=== PATIENT | male | born 1970 | race Caucasian/White ===

== ENCOUNTER → 2017-07-25 | Outpatient (CLI) | payer BC ==
[2017-07-25 08:12] LABS: Blood Urea Nitrogen 16 mg/dL (9-20)
--- NOTE | 2017-07-25 10:54 | CT ---
EXAMINATION TYPE: CT abdomen w con DATE OF EXAM: 07/25/2017 COMPARISON: NONE HISTORY: 47-year-old male complain of periumbilical pain, umbilical hernia, and hiatal hernia. TECHNIQUE: Contiguous axial scanning of the abdomen following administration of 100 ml Omnipaque 300 IV contrast. Delayed images through the kidneys and coronal/sagittal reconstructions performed. CT DLP: 1430 mGycm Automated exposure control for dose reduction was used. FINDINGS: Heart is normal size without pericardial effusion. No sizable hiatal hernia seen. This does not exclu de the possibility of a sliding hiatal hernia. Lung bases clear without pleural effusion. Liver enlarged measuring 21.6 cm craniocaudal. There is suggestion of some fatty sparing along the ga llbladder fossa on the delayed kidney images is slightly decreased attenuation of the liver parenchym a. Portal venous system is patent. No biliary ductal dilatation. Gallbladder, adrenal glands, left kidney, spleen with superior splenules, and pancreas appear within normal limits. There are 2 hypodense lesions in the right kidney, the one at the lower pole measures 1.5 cm and is c ompatible with a cyst. The one at the upper pole measures 1.3 cm and is too small for accurate CT characterization but suspe cted to represent a complicated cyst. Pre and postcontrast attenuation is around 35 Hounsfield units. No dilated small bowel, free fluid, or free air. Partially visualized appendix appears normal. Some prominent right lower quadrant mesenteric lymph no rafita measuring up to 8 mm. Otherwise, no mesenteric or retroperitoneal lymphadenopathy. Mild stool burden and some diverticulosis at the junction of the descending and sigmoid colon. Small right periumbilical omental fat-containing abdominal wall hernia measuring 1.7 cm wide by 2.4 c m craniocaudal. This is a very narrow neck which is not well seen. The pelvis is not imaged. Bones: Degenerative disc disease L5-S1 and endplate spondylosis throughout the lower thoracic spine. IMPRESSION: 1. HEPATOMEGALY (21.6 CM). UNDERLYING HEPATIC STEATOSIS. CORRELATE WITH LFT's, LIPID PROFILE, AND PAT IENT RISK FACTORS. 2. A 1.3 CM LESION UPPER POLE RIGHT KIDNEY IS SUSPECTED TO REPRESENT A HEMORRHAGIC OR PROTEINACEOUS C YST BUT IS TOO SMALL FOR ACCURATE CT CHARACTERIZATION. RECOMMEND 6 MONTH FOLLOW-UP RENAL ULTRASOUND T O EXCLUDE ANY ENLARGING LESIONS. PARTICULAR ATTENTION TO THE UPPER POLE AT THAT TIME. THE LOWER POLE LESION IS COMPATIBLE WITH A CYST. 3. SMALL 1.7 X 2.4 CM RIGHT PERIUMBILICAL HERNIA WITH A VERY NARROW NECK. 4. MILD DIVERTICULOSIS LEFT SIDE OF THE COLON.
--- NOTE | 2017-07-25 13:58 | US ---
EXAMINATION TYPE: US abdomen limited DATE OF EXAM: 07/25/2017 COMPARISON: Same day CT study performed shortly after ultrasound was completed CLINICAL HISTORY: R10.11 RUQ pain. Nausea and bowel movement after eating greasy foods EXAM MEASUREMENTS: Liver Length: 18.5 cm Gallbladder Wall: 0.2 cm CBD: 0.3 cm Right Kidney: 13.0 x 5.8 x 6.5 cm Pancreas: Obscured by bowel gas Liver: enlarged, attenuating, heterogeneous Gallbladder: no evidence of stones Evidence for sonographic Campos's sign: No CBD: limited evaluation Right Kidney: enlarged with cystic area lower pole = 1.4 x 1.3 x 1.5cm Pancreas is obscured by overlying bowel gas on images saved but appeared predominantly within normal limits on subsequent CT. Tail portion is slightly more masslike as noted on addendum. Marked heteroge neous hyperechoic appearance of liver is consistent with diffuse fatty infiltration as confirmed on C T. No intrahepatic ductal dilatation is seen. No suspicious masses are identified on images saved. Th ere are no shadowing gallstones or ultrasound evidence for acute cholecystitis. A simple appearing 1. 4 cm cyst lower pole level right kidney is noted believed to correspond to coronal image [address] Lateral upper pole hypodense lesion likely reflecting simple cyst slightly smaller on CT is not clearly identified on ultrasound. IMPRESSION: 1. No gallstones or ultrasound evidence for acute cholecystitis. Marked fatty infiltrati on of liver is noted. Possible pancreatic tail lesion on CT, advise MRI/MRCP follow-up.
--- NOTE | 2017-07-25 19:58 | P.PN ---
Progress Note - Text Progress Note Date: 07/25/[address] scan results and findings. Patient is being referred to oncology for further work-up.
== END ==
LOC: RADUSMAIN 07:19
PROVIDERS: ATTEND Surgery Plastic and Reconstructive Surgery
DX: K80.10 Calculus of gallbladder with chronic cholecystitis without obstruction (principal); K76.0 Fatty (change of) liver, not elsewhere classified
CPT/HCPCS: 82565; 84520; 76705; 74160; 36415; Q9967

== ENCOUNTER → 2017-07-30 | Outpatient (CLI) | payer BC ==
--- NOTE | 2017-07-30 12:04 | MR ---
EXAMINATION TYPE: MR MRCP DATE OF EXAM: 07/30/2017 COMPARISON: Limited abdominal ultrasound and CT abdomen from 5 days ago. HISTORY: Pancreatic mass. Abnormal CT and ultrasound. Standard multiplanar, multisequence MRI departmental protocol Multiplanar, multisequence images of the abdomen focusing on pancreas were acquired. Thin and thick s lice MRCP images are created on MRI scanner and reviewed. FINDINGS: PANCREAS: Corresponding to CT majority of pancreas is normal in size with lobulation. Pancreatic duct is well-visualized in majority of pancreatic head and body and appears regular without suspicious di latation. Correlating with CT there is more oval fullness in the pancreatic tail with loss of lobulat ion . Area of concern remains isointense to remainder of pancreas on T1 and T2-weighted images. For r eference coronal image 24 series 201-- 1.6 x 1.0 cm lesion. Areas a little more conspicuous on curren t exam as on T2 fat-saturated sequence there appears to be some ductal visualization at level of lesi on image 29 series 401. Evaluation noted suboptimal as postcontrast imaging was not performed. OTHER: Lung bases remain clear. Corresponding to CT there is nonspecific 1.1 cm heterogeneous slightly T2 hyperintense lesion lateral ly upper pole level right kidney favoring simple cyst that needs to be followed. A 1.5 cm lesion lowe r pole level is not clearly identified on MRI suggesting possible proteinaceous cyst. Continued follo w-up also advised for this lesion. Several small splenules are redemonstrated. Gallbladder and both adrenal glands are felt within kylee l limits. Liver shows diffuse signal dropout consistent with mild fatty replacement. No suspicious enlargement is present. Punctate T2 hyperintense lesion right hepatic lobe axial image 39 series 501 favors simpl e cyst too small to visualize on CT. No ductal dilatation is seen. No bowel dilatation is present. No abdominal ascites is seen. Visualized osseous structures are intac t. No abdominal adenopathy is present. IMPRESSION: Persistent slightly suspicious bulbous appearance of pancreatic tail, this is less prominent than CT, neoplasm felt less likely but not excluded. Advise tumor marker correlation. Advise pancreatic cesar col contrast-enhanced MRI in 3-6 months time to reassess if tumor markers are negative.
== END | disposition home or self-care (01) ==
LOC: RADMRIMAIN 10:35
PROVIDERS: ATTEND Internal Medicine Hematology & Oncology
DX: K86.89 Other specified diseases of pancreas (principal)
CPT/HCPCS: 74181

== ENCOUNTER → 2017-08-21 | Day surgery (SDC) | payer BC ==
[2017-08-20 11:39] VITALS: BMI 34.8
[~2017-08-21] MED LIST: LACTATED RINGERS 1,000 ML IV SCH; LIDOCAINE 1% 20 ML VIAL (10MG/ML) FOR IV START INTRADERMA PRN; LIDOCAINE 1% INJ 10MG/ML (20 ML MDV) ONE; MIDAZOLAM 2 MG/2 ML VIAL IV PRN; PROPOFOL 10 MG/ML 20 ML VIAL IV ONE
--- NOTE | 2017-08-21 07:50 | P.GSHP ---
History of Present Illness H&P Date: 08/21/17 CHIEF COMPLAINT: GERD HISTORY OF PRESENT ILLNESS: The patient is a 47-year-old male who presents reports gastroesophageal reflux disease. Upper endoscopy was offered for further evaluation and management. PAST MEDICAL HISTORY: Please see list. PAST SURGICAL HISTORY: Please see list. MEDICATIONS: Please see list. ALLERGIES: Please see list. SOCIAL HISTORY: No illicit drug use FAMILY HISTORY: No reports of Crohn disease or ulcerative colitis. REVIEW OF ORGAN SYSTEMS: CONSTITUTIONAL: No reports of fevers or chills. GI: Denies any blood in stools or constipation. PHYSICAL EXAM: VITAL SIGNS: Stable GENERAL: Well-developed and pleasant in no acute distress. HEENT: No scleral icterus. Extraocular movements grossly intact. Moist buccal mucosa. NECK: Supple without lymphadenopathy. CHEST: Unlabored respirations. Equal bilateral excursions. CARDIOVASCULAR: Regular rate and rhythm. Distal 2+ pulses. ABDOMEN: Soft, nondistended. MUSCULOSKELETAL: No clubbing, cyanosis, or edema. ASSESSMENT: 1. Gastroesophageal reflux disease PLAN: 1. Recommend proceeding with an upper endoscopy Past Medical History Past Medical History: Diabetes Mellitus, GERD/Reflux, Hyperlipidemia, Hypertension, Prostate Disorder, Sleep Apnea/CPAP/BIPAP Additional Past Medical History / Comment(s): hiatal hernia, tumor on pancreas ( to have biopsy), History of Any Multi-Drug Resistant Organisms: None Reported Past Surgical History: Hernia Repair Additional Past Surgical History / Comment(s): umbilical and inguinal hernia repair, surgery to remove glass from left elbow Past Anesthesia/Blood Transfusion Reactions: Motion Sickness Smoking Status: Former smoker - Past Family History Mother Family Medical History: No Reported History Medications and Allergies Home Medications Medication Instructions Recorded Confirmed Type Atorvastatin [Lipitor] 80 mg PO DAILY 08/16/17 08/20/17 History Liraglutide [Victoza 2-Trung] 1.8 mg SQ DAILY 08/16/17 08/20/17 History Losartan/Hydrochlorothiazide 1 each PO QAM 08/16/17 08/20/17 History [Losartan-Hctz 100-25 mg Tab] ALPRAZolam [Xanax] 0.5 mg PO BID PRN 08/20/17 08/20/17 History Tamsulosin [Flomax] 0.4 mg PO DAILY PRN 08/20/17 08/20/17 History Thrive 1 patch TOPICAL DAILY 08/20/17 08/20/17 History metFORMIN HCL 1,000 mg PO BID 08/20/17 08/20/17 History Allergies Allergy/AdvReac Type Severity Reaction Status Date / Time bee venom protein (honey bee) Allergy Swelling Verified 08/20/17 11:30
[2017-08-21 12:09] VITALS: RESP 16; TEMP 97.5
--- NOTE | 2017-08-21 12:45 | P.PCN ---
Date of Procedure: 08/21/17 Description of Procedure: PREOPERATIVE DIAGNOSIS: Gastroesophageal reflux disease. Morbid obesity. POSTOPERATIVE DIAGNOSIS: Morbid obesity. Gastritis. Gastroesophageal reflux disease. Diaphragmatic hiatal hernia without obstruction. OPERATION: Esophagogastroduodenoscopy with biopsies along antrum. SURGEON: Marisa Roberts MD ANESTHESIA: MAC. INDICATIONS: The patient is a 47-year-old male who presents with a history of reflux disease. Benefits and risks of the procedure were described. Informed consent was obtained. DESCRIPTION: The patient was brought into the endoscopy suite and laid in the left lateral decubitus position. An Olympus gastroscope was passed along the posterior oropharynx down to the distal esophagus where the squamocolumnar junction was encountered at 40 cm from the incisors. The stomach was entered and no bile reflux was found. Additional findings are listed below. Biopsies with cold forceps were obtained of the antrum. The first through third portion of the duodenum was examined and unremarkable. Retroflexion of the scope confirmed Hill grade 4 lower esophageal valve. The squamocolumnar junction demostrated LA grade A erosive esophagitis. The stomach was desufflated. The patient tolerated the procedure well. FINDINGS: Squamocolumnar junction 40 cm from the incisors. Diaphragmatic hiatus at 41 cm. Hiatal hernia 1 cm. Hill grade 4 lower esophageal valve. LA grade A erosive esophagitis. No active duodenitis. Gastritis, chronic RECOMMENDATIONS: Upper endoscopy as needed. Plan - Discharge Summary New Discharge Prescriptions: No Action Losartan/Hydrochlorothiazide [Losartan-Hctz 100-25 mg Tab] 1 each PO QAM Liraglutide [Victoza 2-Trung] 1.8 mg SQ DAILY Atorvastatin [Lipitor] 80 mg PO DAILY metFORMIN HCL 1,000 mg PO BID Tamsulosin [Flomax] 0.4 mg PO DAILY PRN PRN Reason: prostate disorder ALPRAZolam [Xanax] 0.5 mg PO BID PRN PRN Reason: Anxiety Thrive 1 patch TOPICAL DAILY Discharge Medication List Atorvastatin [Lipitor] 80 mg PO DAILY 08/16/17 [History] Liraglutide [Victoza 2-Trung] 1.8 mg SQ DAILY 08/16/17 [History] Losartan/Hydrochlorothiazide [Losartan-Hctz 100-25 mg Tab] 1 each PO QAM [History] ALPRAZolam [Xanax] 0.5 mg PO BID PRN 08/20/17 [History] Tamsulosin [Flomax] 0.4 mg PO DAILY PRN 08/20/17 [History] Thrive 1 patch TOPICAL DAILY 08/20/17 [History] metFORMIN HCL 1,000 mg PO BID 08/20/17 [History]
[2017-08-21 12:52] VITALS: BP 105/71; PULSE 72
== END | disposition home or self-care (01) ==
LOC: ORWHC2ENDO 10:39
PROVIDERS: ATTEND Surgery Plastic and Reconstructive Surgery
DX: K29.50 Unspecified chronic gastritis without bleeding (principal); K21.9 Gastro-esophageal reflux disease without esophagitis; K44.9 Diaphragmatic hernia without obstruction or gangrene; F41.9 Anxiety disorder, unspecified; E11.9 Type 2 diabetes mellitus without complications; E78.5 Hyperlipidemia, unspecified; E66.01 Morbid (severe) obesity due to excess calories; I10 Essential (primary) hypertension; Z87.891 Personal history of nicotine dependence; Z79.899 Other long term (current) drug therapy; Z79.84 Long term (current) use of oral hypoglycemic drugs; Z91.030 Bee allergy status; Z68.34 Body mass index [BMI] 34.0-34.9, adult
CPT/HCPCS: 88305; 43239; J2001; J2704

== ENCOUNTER 2017-09-20 08:55 | Day surgery (SDC) | payer BC ==
[2017-09-10 10:28] VITALS: BMI 34.8
--- NOTE | 2017-09-20 07:15 | P.GSHP ---
History of Present Illness H&P Date: 09/20/17 CHIEF COMPLAINT: Ventral hernia HISTORY OF PRESENT ILLNESS: The patient is a 47-year-old male who presents with a history of swelling and pain along the abdomen from a hernia. Now he presents for surgical intervention. PAST MEDICAL HISTORY: Please see list. PAST SURGICAL HISTORY: Please see list. MEDICATIONS: Please see list. ALLERGIES: Please see list. SOCIAL HISTORY: No illicit drug use FAMILY HISTORY: No reports of Crohn disease or ulcerative colitis. REVIEW OF ORGAN SYSTEMS: CONSTITUTIONAL: No reports of fevers or chills. GI: Denies any blood in stools or constipation. PHYSICAL EXAM: VITAL SIGNS: Stable GENERAL: Well-developed pleasant male in no acute distress. HEENT: No scleral icterus. Extraocular movements grossly intact. Moist buccal mucosa. NECK: Supple without lymphadenopathy. CHEST: Unlabored respirations. Equal bilateral excursions. CARDIOVASCULAR: Regular rate and rhythm. Distal 2+ pulses. ABDOMEN: Soft, nondistended. Palpable defect of the abdomen. No peritoneal signs. MUSCULOSKELETAL: No clubbing, cyanosis, or edema. ASSESSMENT: 1. Ventral hernia, recurrent PLAN: 1. Recommend proceeding with a robotic ventral hernia repair with mesh. 2. Benefits and risks of surgical intervention was discussed including possibility of open technique. 3. DVT prophylaxis. 4. Antibiotic prophylaxis. Past Medical History Past Medical History: Diabetes Mellitus, GI Bleed, Hyperlipidemia, Hypertension Additional Past Medical History / Comment(s): hiatal hernia, tumor on pancreas ( to have biopsy), History of Any Multi-Drug Resistant Organisms: None Reported Past Surgical History: Hernia Repair, Orthopedic Surgery Additional Past Surgical History / Comment(s): Umb. and Inguinal hernia repairs , EGD, EUD at [facility]; Elbow surgery Past Anesthesia/Blood Transfusion Reactions: No Reported Reaction Past Psychological History: Anxiety Smoking Status: Former smoker Past Alcohol Use History: Rare Additional Past Alcohol Use History / Comment(s): quit smoking 1 year ago; prev. smoked 1/2 ppd for about 5 years Past Drug Use History: None Reported - Past Family History Mother Family Medical History: No Reported History Medications and Allergies Home Medications Medication Instructions Recorded Confirmed Type Atorvastatin [Lipitor] 80 mg PO DAILY 08/16/17 09/10/17 History Liraglutide [Victoza 2-Trung] 1.8 mg SQ DAILY 05/04/18 05/29/18 History Losartan/Hydrochlorothiazide 1 each PO QAM 08/16/17 09/10/17 History [Losartan-Hctz 100-25 mg Tab] ALPRAZolam [Xanax] 0.5 mg PO BID PRN 08/20/17 09/10/17 History Thrive 1 patch TOPICAL DAILY 08/20/17 09/10/17 History metFORMIN HCL 1,000 mg PO BID 08/20/17 09/10/17 History Omeprazole 40 mg PO DAILY #30 capsule. 08/21/17 09/10/17 Rx Allergies Allergy/AdvReac Type Severity Reaction Status Date / Time bee venom protein (honey bee) Allergy Swelling Verified 09/10/17 10:18
[~2017-09-20 08:55] MED LIST changes: +ACETAMINOPHEN IV (For NPO) 1,000 MG in EMPTY BAG 1 BAG IVPB ONE; +HEPARIN SODIUM,PORCINE 5,000 UNIT/ML 1 ML VIAL SQ ONE; +IBUPROFEN IV 400 MG in SODIUM CHLORIDE 0.9% 250 ML IV ONE; -LIDOCAINE 1% 20 ML VIAL (10MG/ML) FOR IV START INTRADERMA PRN; -LIDOCAINE 1% INJ 10MG/ML (20 ML MDV) ONE; -MIDAZOLAM 2 MG/2 ML VIAL IV PRN; +MORPHINE SULFATE 2 MG/ML SYRINGE IV PRN; +ONDANSETRON 4 MG/2 ML VIAL IVP PRN; +PROMETHAZINE INJ 6.25 MG in SODIUM CHLORIDE 0.9% 50 ML IVPB PRN; -PROPOFOL 10 MG/ML 20 ML VIAL IV ONE; +ceFAZolin IN SWFI 2 GM/20 ML SYRINGE IVP ONE
[2017-09-20 09:23] VITALS: TEMP 97.6
[2017-09-20 09:34] LABS: Glucose,Whole Blood 142 mg/dL (75-99)
[2017-09-20] MEDS ORDERED: LIDOCAINE 1% 20 ML VIAL (10MG/ML) FOR IV START INTRADERMA ONE (09:39)
[2017-09-20] MEDS ORDERED: SCOPOLAMINE 1.5MG/72HR PATCH TRANSDERM ONE (09:41)
[2017-09-20 09:47] LABS: Basophils # (A) 0.1 k/uL (0-0.2); Basophils % (A) 1 %; Eosinophils # (A) 0.2 k/uL (0-0.7); Eosinophils % (A) 3 %; HCT 42.9 % (39.0-53.0); HGB 14.9 gm/dL (13.0-17.5); Lymphocytes # (A) 2.3 k/uL (1.0-4.8); Lymphocytes % (A) 33 %; MCHC 34.7 g/dL (31.0-37.0); MCV 80.7 fL (80.0-100.0); Mean Platelet Volume 6.1; Monocytes # (A) 0.3 k/uL (0-1.0); Monocytes % (A) 5 %; Neutrophils # (A) 3.8 k/uL (1.3-7.7); Neutrophils % (A) 56 %; Platelet Count 268 k/uL (150-450); RBC 5.32 m/uL (4.30-5.90); RDW 13.8 % (11.5-15.5); WBC 6.8 k/uL (3.8-10.6)
[2017-09-20 10:00] LABS: Potassium 4.2 mmol/L (3.5-5.1)
[2017-09-20] MEDS ORDERED: fentaNYL (PF) 50 MCG/ML 2 ML AMP ONE (11:27)
[2017-09-20] MEDS ORDERED: SUCCINYLCHOLINE CHLORIDE 100 MG/5 ML SYR IV ONE (11:27)
[2017-09-20] MEDS ORDERED: ROCURONIUM BROMIDE 10 MG/ML 10 ML VIAL IV ONE (11:27)
[2017-09-20] MEDS ORDERED: PROPOFOL 10 MG/ML 20 ML VIAL IV ONE (11:27)
[2017-09-20] MEDS ORDERED: LIDOCAINE 1% INJ 10MG/ML (20 ML MDV) ONE (11:27)
[2017-09-20] MEDS ORDERED: MIDAZOLAM 2 MG/2 ML VIAL ONE (11:27)
[2017-09-20] MEDS ORDERED: HYDROmorphone (PF) 1 MG/ML ONE (11:27)
[2017-09-20] MEDS ORDERED: BUPIVACAINE (PF) 0.5% 30 ML VIAL SQ ONE (11:54)
[2017-09-20] MEDS ORDERED: LACTATED RINGERS 1,000 ML IV ONE (12:04)
--- NOTE | 2017-09-20 13:08 | P.PCN ---
Date of Procedure: 09/20/17 Preoperative Diagnosis: Recurrent incarcerated ventral hernia Postoperative Diagnosis: Same Procedure(s) Performed: Robotic-assisted repair of recurrent incarcerated ventral hernia Anesthesia: GETA, local Surgeon: Marisa Roberts Hydrogenation Operator #1: Bro Angelo Estimated Blood Loss (ml): 5 Pathology: other (Incarcerated ventral hernia sac) Condition: stable Disposition: same day
[2017-09-20] MEDS: HYDROmorphone 0.5 MG/0.5 ML SYRINGE IVP PRN ×2 (13:20→13:28)
[2017-09-20] MEDS ORDERED: diphenhydrAMINE 50 MG/ML 1 ML VIAL IVP ONE (13:28)
[2017-09-20] MEDS ORDERED: HYDROmorphone 1 MG/ML 1 ML SYRINGE IVP ONE (13:46)
[2017-09-20] MEDS ORDERED: HYDROcodone/APAP 5-325MG 1 EACH TAB PO ONE (14:48)
[2017-09-20 15:08] VITALS: BP 143/72; PULSE 79; RESP 18
--- NOTE | 2017-10-06 21:20 | P.OP ---
Date of Procedure: 09/20/17 Description of Procedure: SURGEON: MAURICE ROBERTS MD PREOPERATIVE DIAGNOSES: 1. Recurrent incarcerated ventral hernia 2. History of pancreatic neoplasm 3. Morbid obesity due to excess calories, BMI 34.9 4. Diabetes type 2, [id number] 5. Hyperlipidemia 6. Hypertensive heart disease 7. Gastroesophageal reflux disease 8. Hiatal hernia POSTOPERATIVE DIAGNOSES: 1. Recurrent incarcerated ventral hernia, 3 cm 2. History of pancreatic neoplasm 3. Morbid obesity due to excess calories, BMI 34.9 4. Diabetes type 2, pro-[id number] 5. Hyperlipidemia 6. Hypertensive heart disease 7. Gastroesophageal reflux disease 8. Hiatal hernia OPERATION: 1. Robotic-assisted da Mitchell Xi laparoscopic repair of recurrent incarcerated ventral hernia with 11.[address] mesh Anesthesia: ZEYNEP local Program Aide Group Work #1: Bro Angelo Estimated Blood Loss (ml): 5 Pathology: other (Incarcerated ventral hernia sac) Condition: stable Disposition: same day COMPLICATIONS: None. INDICATIONS: The patient is a 47-year-old male who presents with pain along the epigastrium including periumbilical pain. He has had previous hernia repair now with recurrence. Surgical intervention with laparoscopic versus robotic and open techniques were reviewed. Placement of mesh was also reviewed. Benefits and risks were thoroughly described. Informed consent was obtained. DESCRIPTION OF PROCEDURE: The patient was brought into the operating room and laid in supine position. After general induction, the abdomen had been prepped and draped in standard sterile fashion. Ioban draping was also placed. Prior to incision, a timeout protocol was confirmed with surgical team regarding the patient's name including procedures to be performed. The robot was primed prior to the procedure. A field block using local anesthetic was placed along hernia site including the proposed port sites. Initial incision was made with #11 blade along the left upper quadrant. A 0 degree 5 mm laparoscopic trocar entry was performed. Diagnostic laparoscopy demonstrated moderate peritoneal adhesions involving the epigastrium. Separately an incarcerated ventral hernia of the epigatrium was identified. A 12 mm trocar was placed along the left lateral abdominal wall approximately 12 cm lateral to the lower midline. An 8 mm port was placed along the left lower quadrant under direct localization. The 5-mm port was exchanged for an 8 mm robotic port. Placements of the ports were 12 cm from the target anatomy and approximately 10 cm apart. The da Mitchell Xi robot was previously primed, prepped and draped then docked along the left side of the patient. I then sat at the robot Da Mitchell Xi console where working arms of the robot including Bovie cautery connected to robotic scissors, needle driver/guide, and graspers placed by the psychiatric assistant. Fascial defect of 3 cm of the epigastrium was identified after cleaning the peritoneal fat of the abdominal wall. The incarcerated contents was reduced as the peritoneal fat was cleaned from the abdominal wall. Next, hemostasis was checked with cautery. The hernia defect was oversewn using #1 Stratafix with imbrication 3. Next, ventralight ST mesh 11.4 cm was placed with the rough side towards the abdominal wall. 2-0 VLOC 9 inch sutures were used to fixate the mesh. Final endoscopic imaging was obtained. All instruments and pneumoperitoneum were evacuated from the abdominal cavity. The da Mitchell Xi robot was undocked from the patient. I re-scrubbed into the case for closure of incisions. The fascia of the 12-mm port was probed and less than 8-mm in size. The incisions were reapproximated using 4-0 Monocryl in an interrupted subcuticular fashion. Liquid glue was applied to the skin after cleansing the skin with normal saline and dilute hydrogen peroxide. A dressing was placed at the umbilicus with 4 x 4 gauze followed by Tegaderm. An abdominal binder was placed. At the end of the procedure, needle, sponge, and instrument count had been verified correct by audio technician. The patient was taken to the postanesthesia care unit in stable condition. Console time 32 minutes FINDINGS: 1. Recurrent ventral incarcerated hernia of the epigastrium, 3 cm Plan - Discharge Summary Discharge Rx Participant: No New Discharge Prescriptions: New HYDROcodone/APAP 5-325MG [[place] 5-325] 1 tab PO Q4HR PRN 3 Days #18 tab PRN Reason: Pain Ibuprofen [Motrin] 600 mg PO Q8HR PRN #30 tab PRN Reason: Pain No Action Losartan/Hydrochlorothiazide [Losartan-Hctz 100-25 mg Tab] 1 each PO QAM Liraglutide [Victoza 2-Trung] 1.8 mg SQ DAILY Atorvastatin [Lipitor] 80 mg PO DAILY metFORMIN HCL 1,000 mg PO BID ALPRAZolam [Xanax] 0.5 mg PO BID PRN PRN Reason: Anxiety Thrive 1 patch TOPICAL DAILY Omeprazole 40 mg PO DAILY #30 capsule. Discharge Medication List Atorvastatin [Lipitor] 80 mg PO DAILY 08/16/17 [History] Liraglutide [Victoza 2-Trung] 1.8 mg SQ DAILY 08/16/17 [History] Losartan/Hydrochlorothiazide [Losartan-Hctz 100-25 mg Tab] 1 each PO QAM [History] ALPRAZolam [Xanax] 0.5 mg PO BID PRN 08/20/17 [History] Thrive 1 patch TOPICAL DAILY 08/20/17 [History] metFORMIN HCL 1,000 mg PO BID 08/20/17 [History] Omeprazole 40 mg PO DAILY #30 capsule. 08/21/17 [Rx] HYDROcodone/APAP 5-325MG [[place] 5-325] 1 tab PO Q4HR PRN 3 Days #18 tab [Rx] Ibuprofen [Motrin] 600 mg PO Q8HR PRN #30 tab 09/20/17 [Rx] Follow up Appointment(s)/Referral(s): Maurice Roberts MD [STAFF PHYSICIAN] - 09/24/17 11:40 am Patient Instructions/Handouts: *Surgery [facility] - (Anesthesia) Discharge Instructions Outpatient Surgery, Laparoscopic Herniorrhaphy (DC), Abdominal Binder (DC) Activity/Diet/Wound Care/Special Instructions: No lifting over 4 pounds in 4 weeks. May shower. No bath tub soaks. Keep dressing on until seen by surgeon. Do not remove dressing. Wear abdominal binder at all times for comfort. Discharge Disposition: HOME SELF-CARE
== END 2017-09-20 15:20 | disposition home or self-care (01) ==
LOC: ORWHC2ENDO 08:55 → EDSTATUS 11:55 → ORWHC2ENDO 15:20
PROVIDERS: ATTEND Surgery Plastic and Reconstructive Surgery
DX: K43.0 Incisional hernia with obstruction, without gangrene (principal); E11.9 Type 2 diabetes mellitus without complications; Z79.84 Long term (current) use of oral hypoglycemic drugs; E78.5 Hyperlipidemia, unspecified; I10 Essential (primary) hypertension; Z87.891 Personal history of nicotine dependence; K44.9 Diaphragmatic hernia without obstruction or gangrene; Z87.19 Personal history of other diseases of the digestive system; D49.0 Neoplasm of unspecified behavior of digestive system; F41.9 Anxiety disorder, unspecified; Z79.899 Other long term (current) drug therapy; Z91.030 Bee allergy status
CPT/HCPCS: 49653; S2900; 80051; 85025; 86850; 86900; 86901; 88302

== ENCOUNTER → 2018-12-03 | Outpatient (CLI) | payer BC ==
--- NOTE | 2018-12-04 09:48 | US ---
EXAMINATION TYPE: US carotid duplex BILAT DATE OF EXAM: 12/03/2018 COMPARISON: NONE CLINICAL HISTORY: R42 Dizziness. Numbness right cheek and gums EXAM MEASUREMENTS: RIGHT: Peak Systolic Velocity (PSV) cm/sec ----- Right CCA: 106.6 ----- Right ICA: 92.4 ----- Right ECA: 178.3 ICA/CCA ratio: 1.2 RIGHT: End Diastole cm/sec ----- Right CCA: 31.5 ----- Right ICA: 36.7 ----- Right ECA: 38.3 LEFT: Peak Systolic Velocity (PSV) cm/sec ----- Left CCA: 105.0 ----- Left ICA: 93.9 ----- Left ECA: 143.9 ICA/CCA ratio: 1.2 LEFT: End Diastole cm/sec ----- Left CCA: 33.4 ----- Left ICA: 40.0 ----- Left ECA: 23.0 VERTEBRALS (direction of flow): Right Vertebral: Antegrade Left Vertebral: Antegrade IMPRESSION: 1. No significant flow-limiting stenosis bilateral internal carotid arteries. 2. There is some mild narrowing of the external carotid arteries bilaterally with increased velocitie s. Criteria for Assigning % of Stenosis / Diameter reduction (Estimation based on the indirect measurements of the internal carotid artery velocities (ICA PSV). 1. Normal (no stenosis)=ICA PSV < 125 cm/s: ratio < 2.0: ICA EDV<40 cm/s. 2. Less than 50% stenosis=ICA PSV < 125 cm/s: ratio < 2.0: ICA EDV<40 cm/s. 3. 50 to 69% stenosis=ICA PSV of 125 to 230 cm/s: ration 2.0 ? 4.0: ICA EDV 40-100 cm/s. 4. Greater than 70% stenosis to near occlusion= ICA PSV > 230 cm/s: ratio > 4.0: ICA EDV > 100 cm/s. 5. Near occlusion= ICA PSV velocities may be low or undetectable: variable ratio and ICA EDV. 6. Total occlusion=unable to detect flow.
== END | disposition home or self-care (01) ==
LOC: RADUSWWP 16:11
PROVIDERS: ATTEND Internal Medicine
DX: I65.23 Occlusion and stenosis of bilateral carotid arteries (principal)
CPT/HCPCS: 93880

== ENCOUNTER 2019-01-08 10:24 | Emergency (ER) | payer BC ==
[2019-01-08] MEDS ORDERED: SODIUM CHLORIDE 0.9% 1,000 ML IV STA (10:46)
[2019-01-08] MEDS ORDERED: SODIUM CHLORIDE 0.9% 500 ML 500 ML IV STA (10:46)
--- NOTE | 2019-01-08 11:21 | ED ---
Abdominal Pain HPI - General Chief Complaint: Abdominal Pain Stated Complaint: abd pain, nausea Time Seen by Provider: 01/08/19 10:46 Source: patient Mode of arrival: ambulatory Limitations: no limitations - History of Present Illness Initial Comments: 48-year-old male with past medical history of chronic right upper quadrant pain presenting for RUQ, vomiting, diarrhea, nausea 1 week. Patient states it feels like when he had gallbladder issues in the past. Patient states he was previously scheduled with Dr. Roberts for an outpatient HIDA scan but has to have a ventral hernia repair and was not able to have the HIDA scan. Patient states that both the stools and the vomit are yellow. Eyes hematochezia melena fevers. Patient has a lower abdominal pain chest pain or shortness of breath. Remaining review of system negative. Upon arrival patient appears well signs of acute distress afebrile vital signs within acceptable limits. - Related Data Home Medications Medication Instructions Recorded Confirmed Atorvastatin [Lipitor] 80 mg PO DAILY 08/16/17 01/08/19 ALPRAZolam [Xanax] 0.5 mg PO HS 08/20/17 01/08/19 metFORMIN HCL 1,000 mg PO BID 08/20/17 01/08/19 Insulin Glargine,Hum.rec.anlog 10 units PO HS 01/08/19 01/08/19 [Lantus Solostar] Losartan Potassium [Cozaar] 100 mg PO DAILY 01/08/19 01/08/19 Previous Rx's Medication Instructions Recorded Ondansetron Odt [Zofran Odt] 4 mg PO Q12HR PRN 5 Days #10 tab 01/08/19 Allergies Allergy/AdvReac Type Severity Reaction Status Date / Time bee venom protein (honey bee) Allergy Swelling Verified 01/08/19 11:07 tramadol [From Ultram] Allergy Unknown Verified 01/08/19 11:10 Review of Systems ROS Statement: Those systems with pertinent positive or pertinent negative responses have been documented in the HPI. ROS Other: All systems not noted in ROS Statement are negative. Past Medical History Past Medical History: Diabetes Mellitus, GERD/Reflux, Hyperlipidemia, Hypertension, Prostate Disorder, Sleep Apnea/CPAP/BIPAP Additional Past Medical History / Comment(s): hiatal hernia, tumor on pancreas (to have biopsy), History of Any Multi-Drug Resistant Organisms: None Reported Past Surgical History: Hernia Repair Additional Past Surgical History / Comment(s): umbilical and inguinal hernia repair, surgery to remove glass from left elbow Past Anesthesia/Blood Transfusion Reactions: Motion Sickness Past Psychological History: Depression Smoking Status: Former smoker Past Alcohol Use History: None Reported Past Drug Use History: None Reported - Past Family History Mother Family Medical History: No Reported History General Exam - General Exam Comments Initial Comments: General: The patient is awake and alert, in no distress, and does not appear acutely ill. Eye: Pupils are equal, round and reactive to light, extra-ocular movements are intact. No nystagmus. There is normal conjunctiva bilaterally. No signs of icterus. Ears, nose, mouth and throat: There are moist mucous membranes and no oral lesions. Neck: The neck is supple, there is no tenderness or JVD. Cardiovascular: There is a regular rate and rhythm. No murmur, rub or gallop is appreciated. Respiratory: Lungs are clear to auscultation, respirations are non-labored, breath sounds are equal. No wheezes, stridor, rales, or rhonchi. Gastrointestinal: Soft, non-distended, mild RUQ tenderness to palpation of the abdomen, + Diana sign, the abdomen is without masses or organomegaly noted. There is no rebound or guarding present. No CVA tenderness. Bowel sounds are unremarkable Musculoskeletal: Normal ROM, no tenderness. Strength 5/5. Sensation intact. Radial pulses equal bilaterally 2+. Neurological: A&O x 3. CN II-XII intact grossly, There are no obvious motor or sensory deficits. Coordination appears grossly intact. Speech is normal. Skin: Skin is warm and dry and no rashes or lesions are noted. Psychiatric: Cooperative, appropriate mood & affect, normal judgment. Limitations: no limitations Course Vital Signs 01/08/19 01/08/19 01/08/19 10:38 11:22 12:56 Temperature 98.1 F 98 F Pulse Rate 79 83 91 Respiratory 17 16 18 Rate Blood Pressure 127/87 138/81 122/72 O2 Sat by Pulse 97 99 97 Oximetry 01/08/19 13:46 Temperature 97.7 F Pulse Rate 81 Respiratory 18 Rate Blood Pressure 121/77 O2 Sat by Pulse 97 Oximetry Medical Decision Making - Medical Decision Making A well-appearing 48yo female presents for evaluation of his gallbladder. Patient complaining of right upper quadrant pain loose stools vomiting nausea. She denies chest pain or shortness of breath. Patient appears well and nontoxic. No history of fevers. Patient has no leukocytosis, transaminases are within acceptable limits. No elevation of alk phos, lipase WNL. Patient's ultrasound the gallbladder revealed no signs of acute cholecystitis. At this time do feel patient is stable for discharge and does not have findings consistent with acute abdomen. Patient is agreeable with this care plan and sta willy he will call Armando's office to make an appointment and is agreeable with care plan and discharge at this time> Case discussed with Dr. Calvillo who is agreeable with care plan and discharge at this time. - Lab Data Result diagrams: 01/08/19 11:20 01/08/19 11:20 Lab Results 01/08/19 01/08/19 01/08/19 Range/Units 11:20 11:20 11:20 WBC 8.3 (3.8-10.6) k/uL RBC 5.48 (4.30-5.90) m/uL Hgb 15.7 (13.0-17.5) gm/dL Hct 46.4 (39.0-53.0) % MCV 84.7 (80.0-100.0) fL MCH 28.6 (25.0-35.0) pg MCHC 33.8 (31.0-37.0) g/dL RDW 14.1 (11.5-15.5) % Plt Count 323 (150-450) k/uL Neutrophils % 65 % Lymphocytes % 22 % Monocytes % 5 % Eosinophils % 4 % Basophils % 3 % Neutrophils # 5.4 (1.3-7.7) k/uL Lymphocytes # 1.8 (1.0-4.8) k/uL Monocytes # 0.4 (0-1.0) k/uL Eosinophils # 0.3 (0-0.7) k/uL Basophils # 0.3 H (0-0.2) k/uL Sodium 141 (137-145) mmol/L Potassium 4.5 (3.5-5.1) mmol/L Chloride 103 (98-107) mmol/L Carbon Dioxide 24 (22-30) mmol/L Anion Gap 14 mmol/L BUN 16 (9-20) mg/dL Creatinine 0.73 (0.66-1.25) mg/dL Est GFR (CKD-EPI)AfAm >90 (>60 ml/min/1.73 sqM) Est GFR (CKD-EPI)NonAf >90 (>60 ml/min/1.73 sqM) Glucose 148 H (74-99) mg/dL Calcium 10.2 (8.4-10.2) mg/dL Total Bilirubin 0.7 (0.2-1.3) mg/dL AST 38 (17-59) U/L ALT 51 (21-72) U/L Alkaline Phosphatase 97 (38-126) U/L Total Protein 7.7 (6.3-8.2) g/dL Albumin 4.7 (3.5-5.0) g/dL Amylase <30 L (30-110) U/L Lipase 53 (23-300) U/L Urine Color Yellow Urine Appearance Clear (Clear) Urine pH 5.5 (5.0-8.0) Ur Specific Orient 1.025 (1.001-1.035) Urine Protein Negative (Negative) Urine Glucose (UA) 3+ H (Negative) Urine Ketones Negative (Negative) Urine Blood Negative (Negative) Urine Nitrite Negative (Negative) Urine Bilirubin Negative (Negative) Urine Urobilinogen <2.0 (<2.0) mg/dL Ur Leukocyte Esterase Negative (Negative) Disposition Clinical Impression: Right upper quadrant abdominal tenderness, Diarrhea, Vomiting Disposition: HOME SELF-CARE Condition: Good Instructions (If sedation given, give patient instructions): Abdominal Pain (ED) Additional Instructions: Please use medication as discussed. Please follow-up with family doctor in the next 2 days, and call your general surgeon to schedule appointment and outpatient HIDA scan. Please return to emergency room if the symptoms increase or worsen or for any other concerns. Prescriptions: Ondansetron Odt [Zofran Odt] 4 mg PO Q12HR PRN 5 Days #10 tab PRN Reason: Nausea Is patient prescribed a controlled substance at d/c from ED?: No Referrals: Kar Mercado MD [Primary Care Provider] - 1-2 days Marisa Roberts MD [STAFF PHYSICIAN] - 1-2 days Time of Disposition: 13:32
[2019-01-08 11:36] LABS: Appearance,Urine Clear (Clear); Basophils # (A) 0.3 k/uL (0-0.2); Basophils % (A) 3 %; Bilirubin,Urine Negative (Negative); Blood,Urine Negative (Negative); Color,Urine Yellow; Eosinophils # (A) 0.3 k/uL (0-0.7); Eosinophils % (A) 4 %; Glucose,Urine (UA) 3+ (Negative); HCT 46.4 % (39.0-53.0); HGB 15.7 gm/dL (13.0-17.5); Ketones,Urine Negative (Negative); Leukocyte Esterase,Urine Negative (Negative); Lymphocytes # (A) 1.8 k/uL (1.0-4.8); Lymphocytes % (A) 22 %; MCH 28.6 pg (25.0-35.0); MCHC 33.8 g/dL (31.0-37.0); MCV 84.7 fL (80.0-100.0); Mean Platelet Volume 6.2; Monocytes # (A) 0.4 k/uL (0-1.0); Monocytes % (A) 5 %; Neutrophils # (A) 5.4 k/uL (1.3-7.7); Neutrophils % (A) 65 %; Nitrite,Urine Negative (Negative); PH, Urine 5.5 (5.0-8.0); Platelet Count 323 k/uL (150-450); Protein,Urine Negative (Negative); RBC 5.48 m/uL (4.30-5.90); RDW 14.1 % (11.5-15.5); Specific Gravity,Urine 1.025 (1.001-1.035); Urobilinogen,Urine <2.0 mg/dL (<2.0); WBC 8.3 k/uL (3.8-10.6)
[2019-01-08 11:47] LABS: African American GFR (CKD) >90 (>60 ml/min/1.73 sqM); Albumin 4.7 g/dL (3.5-5.0); Amylase <30 U/L (30-110); Anion Gap 14 mmol/L; Blood Urea Nitrogen 16 mg/dL (9-20); Calcium 10.2 mg/dL (8.4-10.2); Carbon Dioxide 24 mmol/L (22-30); Chloride 103 mmol/L (98-107); Glucose 148 mg/dL (74-99); Sodium 141 mmol/L (137-145); Total Bilirubin 0.7 mg/dL (0.2-1.3); Total Protein 7.7 g/dL (6.3-8.2)
[2019-01-08 11:52] LABS: ALT 51 U/L (21-72); AST 38 U/L (17-59); Alkaline Phosphatase 97 U/L (38-126); Potassium 4.5 mmol/L (3.5-5.1)
--- NOTE | 2019-01-08 12:41 | US ---
EXAMINATION TYPE: US abdomen limited DATE OF EXAM: 01/08/2019 COMPARISON: MRI, CT & US 2018 CLINICAL HISTORY: right upper abdominal pain. Abdomen pain and N/V/D x couple days EXAM MEASUREMENTS: Liver Length: 18.1 cm Gallbladder Wall: 0.3 cm CBD: 0.4 cm Right Kidney: 12.8 x 5.4 x 5.8 cm Pancreas: obscured by overlying midline bowel gas Liver: enlarged, attenuating, increased echogenicity, heterogeneous, no definite lesions seen at thi s time Gallbladder: no evidence of stones, wall bordering is upper limits of normal measured at 0.3cm. No p ericholecystic fluid. Evidence for sonographic Campos's sign: no CBD: visualized portions wnl, limited by overlying bowel gas Right Kidney: mildly enlarged with 1.5 x 1.3 x 1.4cm cystic area inferior pole IMPRESSION: 1. No sonographic evidence of acute cholecystitis. 2. Hepatic echotexture is hyperechoic and coarsened most commonly related to hepatic steatosis appear ing overall moderate in degree. There is also hepatomegaly.
[2019-01-08 12:57] VITALS: RESP 18
--- NOTE | 2019-01-08 13:29 | XR ---
EXAMINATION TYPE: XR KUB DATE OF EXAM: 01/08/2019 1:24 PM CLINICAL HISTORY: Abdominal pain TECHNIQUE: Single upright image of the abdomen is obtained. COMPARISON: None. FINDINGS: Scattered gas is seen in non-distended small bowel loops. Gas and fecal material is seen in non-distended colon. There is no pneumoperitoneum or abnormal calcification appreciated. The lung ba ses are clear and the osseous structures are intact. Small phleboliths are seen within the pelvis. IMPRESSION: Nonobstructive bowel gas pattern.
[2019-01-08 13:48] VITALS: BP 121/77; PULSE 81; TEMP 97.7
== END 2019-01-08 13:46 | disposition home or self-care (01) ==
LOC: EC 10:24
DX: R10.11 Right upper quadrant pain (principal); R11.2 Nausea with vomiting, unspecified; R19.7 Diarrhea, unspecified; E11.9 Type 2 diabetes mellitus without complications; E78.5 Hyperlipidemia, unspecified; I10 Essential (primary) hypertension; G47.30 Sleep apnea, unspecified; Z87.891 Personal history of nicotine dependence; Z88.5 Allergy status to narcotic agent; Z91.030 Bee allergy status; Z79.4 Long term (current) use of insulin; Z79.899 Other long term (current) drug therapy; Z87.19 Personal history of other diseases of the digestive system; Z98.890 Other specified postprocedural states; Z99.89 Dependence on other enabling machines and devices
CPT/HCPCS: 36415; 74018; 76705; 80053; 81003; 82150; 83690; 85025; 96360; 96361; 99284

== ENCOUNTER 2019-01-16 07:43 | Day surgery (SDC) | payer BC ==
[2019-01-13 15:36] VITALS: BMI 35.2
--- NOTE | 2019-01-15 19:40 | P.GSHP ---
History of Present Illness H&P Date: 01/16/19 CHIEF COMPLAINT: Cholecystitis HISTORY OF PRESENT ILLNESS: The patient is a 48-year-old male who presents with history of epigastric including right upper quadrant abdominal pain. He underwent diagnostic studies for the gallbladder. Separately his clinical picture was consistent with cholecystitis. Now he presents for surgical intervention. PAST MEDICAL HISTORY: Please see list PAST SURGICAL HISTORY: Please see list MEDICATIONS: Please see list ALLERGIES: Please see list SOCIAL HISTORY: Please see list FAMILY HISTORY: Pertinent for gallbladder disease REVIEW OF ORGAN SYSTEMS: CONSTITUTIONAL: No reports of fevers or chills. HEENT: Denies any troubles with the vision or hearing. HEMATOLOGIC: No personal or family history of DVTs or pulmonary emboli. PHYSICAL EXAM: VITAL SIGNS: Afebrile vital signs stable GENERAL: Well-developed pleasant male in no acute distress. HEENT: No scleral icterus. Extraocular movements grossly intact. Moist buccal mucosa. NECK: Supple without lymphadenopathy. CHEST: Unlabored respirations. Equal bilateral excursions. CARDIOVASCULAR: Regular rate regular rhythm rhythm. Distal 2+ pulses. ABDOMEN: Soft, nondistended. Tender along the epigastrium and right upper quadrant. MUSCULOSKELETAL: No clubbing, cyanosis, or edema. NEURO : No focal or lateralizing signs. Cranial nerves II-12 within normal limits. PSYCH: Alert and oriented to person, place and time. SKIN: Well perfused. Good skin turgor. ASSESSMENT: 1. Epigastric and right upper quadrant abdominal pain 2. Chronic cholecystitis PLAN: 1. Will need a robotic cholecystectomy possible open. Benefits and risks were described. 2. Heparin for DVT prophylaxis 5000 units. 3. Antibiotic prophylaxis. Past Medical History Past Medical History: Diabetes Mellitus, GERD/Reflux, Hyperlipidemia, Hypertension, Prostate Disorder, Sleep Apnea/CPAP/BIPAP Additional Past Medical History / Comment(s): hiatal hernia, tumor on pancreas (to have biopsy), History of Any Multi-Drug Resistant Organisms: None Reported Past Surgical History: Hernia Repair Additional Past Surgical History / Comment(s): umbilical and inguinal hernia repair, surgery to remove glass from left elbow Past Anesthesia/Blood Transfusion Reactions: No Reported Reaction Smoking Status: Former smoker - Past Family History Mother Family Medical History: No Reported History Medications and Allergies Home Medications Medication Instructions Recorded Confirmed Type Atorvastatin [Lipitor] 80 mg PO DAILY 08/16/17 01/13/19 History ALPRAZolam [Xanax] 0.5 mg PO HS 08/20/17 01/13/19 History metFORMIN HCL 1,000 mg PO BID 08/20/17 01/13/19 History Insulin Glargine,Hum.rec.anlog 10 units PO HS 01/08/19 01/13/19 History [Lantus Solostar] Losartan Potassium [Cozaar] 100 mg PO DAILY 01/08/19 01/13/19 History Ondansetron Odt [Zofran Odt] 4 mg PO Q12HR PRN 5 Days #10 tab 01/08/19 01/13/19 Rx buPROPion HCL [Wellbutrin XL] 300 mg PO DAILY 01/13/19 01/13/19 History Allergies Allergy/AdvReac Type Severity Reaction Status Date / Time bee venom protein (honey bee) Allergy Swelling Verified 01/13/19 15:26 tramadol [From Ultram] Allergy NIGHT Verified 01/13/19 15:26 DRAGAN
[~2019-01-16 07:43] MED LIST changes: -ACETAMINOPHEN IV (For NPO) 1,000 MG in EMPTY BAG 1 BAG IVPB ONE; +ACETAMINOPHEN TAB 500 MG TAB PO STA; +HYDROmorphone 0.5 MG/0.5 ML SYRINGE IVP PRN; -IBUPROFEN IV 400 MG in SODIUM CHLORIDE 0.9% 250 ML IV ONE; +INDOCYANINE GREEN 25 MG VIAL IV ONE; +MIDAZOLAM 2 MG/2 ML VIAL IV PRN; -MORPHINE SULFATE 2 MG/ML SYRINGE IV PRN; -ONDANSETRON 4 MG/2 ML VIAL IVP PRN; -PROMETHAZINE INJ 6.25 MG in SODIUM CHLORIDE 0.9% 50 ML IVPB PRN; -ceFAZolin IN SWFI 2 GM/20 ML SYRINGE IVP ONE
[2019-01-16] MEDS ORDERED: LIDOCAINE 1% 20 ML VIAL (10MG/ML) FOR IV START INTRADERMA ONE (08:10)
[2019-01-16] MEDS: ONDANSETRON 4 MG/2 ML VIAL IVP ONE ×2 (08:11→08:25)
[2019-01-16] MEDS: DEXAMETHASONE SOD PHOSPHATE 10 MG/ML 1 ML VIAL IV ONE ×2 (08:11→08:25)
[2019-01-16] MEDS: SCOPOLAMINE 1.5MG/72HR PATCH TRANSDERM ONE ×2 (08:11→08:25)
[2019-01-16 08:21] LABS: Glucose,Whole Blood 159 mg/dL (75-99)
[2019-01-16] MEDS ORDERED: fentaNYL (PF) 50 MCG/ML 2 ML AMP ONE (09:32)
[2019-01-16] MEDS ORDERED: HYDROmorphone (PF) 1 MG/ML ONE (09:32)
[2019-01-16] MEDS ORDERED: INDOCYANINE GREEN 25 MG VIAL IV ONE (09:32)
[2019-01-16] MEDS ORDERED: NEOSTIGMINE 1 MG/ML 10 ML VIAL ONE (09:32)
[2019-01-16] MEDS ORDERED: PROPOFOL 10 MG/ML 20 ML VIAL IV ONE (09:32)
[2019-01-16] MEDS ORDERED: ROCURONIUM BROMIDE 10 MG/ML 10 ML VIAL IV ONE (09:32)
[2019-01-16] MEDS ORDERED: SUCCINYLCHOLINE CHLORIDE 100 MG/5 ML SYR IV ONE (09:32)
[2019-01-16] MEDS ORDERED: KETOROLAC 30 MG/ML 1 ML VIAL ONE (09:32)
[2019-01-16] MEDS ORDERED: MIDAZOLAM 2 MG/2 ML VIAL ONE (09:32)
[2019-01-16] MEDS ORDERED: LIDOCAINE 1% INJ 10MG/ML (20 ML MDV) ONE (09:32)
[2019-01-16] MEDS ORDERED: GLYCOPYRROLATE 0.2 MG/ML 2 ML VIAL ONE (09:32)
[2019-01-16] MEDS ORDERED: LIDOCAINE 1%-EPI 1:100,000 20 ML VIAL SQ ONE (09:57)
[2019-01-16] MEDS ORDERED: LACTATED RINGERS 1,000 ML IV ONE (10:37)
[2019-01-16 11:25] VITALS: TEMP 98.2
--- NOTE | 2019-01-16 11:57 | P.OP ---
Date of Procedure: 01/16/19 Description of Procedure: SURGEON: MARISA ROBERTS MD PREOPERATIVE DIAGNOSES: 1. Right upper quadrant abdominal pain 2. Chronic cholecystitis 3. Left upper quadrant abdominal pain 4. Diabetes type 2, insulin-dependent 5. Generalized anxiety disorder 6. Hypertensive heart disease 7. Morbid obesity due to excess calories, BMI 35.0 8. Depressive disorder POSTOPERATIVE DIAGNOSES: 1. Right upper quadrant abdominal pain 2. Chronic cholecystitis 3. Left upper quadrant abdominal pain 4. Diabetes type 2, insulin-dependent 5. Generalized anxiety disorder 6. Hypertensive heart disease 7. Morbid obesity due to excess calories, BMI 35.0 8. Depressive disorder 9. Fatty liver disease with hepatomegaly OPERATION: 1. Robotic-assisted da Mitchell Xi laparoscopic cholecystectomy, multiport with FIREFLY 2. Robotic-assisted da Mitchell Xi laparoscopic lysis of adhesions ESTIMATED BLOOD LOSS: 5 mL. SPECIMENS REMOVED: Gallbladder. COMPLICATIONS: None. OPERATIVE FINDINGS: 1. Chronic cholecystitis 2. Console time 35 minutes INDICATIONS: The patient is a 48-year-old male who presents with cholelcystitis including left upper quadrant abdominal pain. Surgical intervention with a laparoscopic cholecystectomy was described at length including injury to the biliary tree, bleeding, infection, need for further surgery. Informed consent was obtained. Robotic assisted laparoscopic approach was described. Benefits and risks of the procedure including but not limited to bleeding, infection, injury to the biliary tree was described. Informed consent was obtained. DESCRIPTION OF PROCEDURE: Patient was brought to the operating room, placed in supine position. After general induction, the abdomen had been prepped and draped in standard sterile fashion. The robotic da Mitchell XI system was primed. After a timeout protocol was performed, the patient had been prepped and draped in standard sterile fashion. The patient was injected with indocyanine green. A 5 mm 0 degrees laparoscopic trocar entry was performed along the left upper quadrant. The abdomen insufflated to 15 mmHg pressure which was tolerated well. Diagnostic laparoscopy demonstrated no injury to bowel viscera or mesentery. The liver surface was consistent with fatty liver disease including hepatomegaly adding complexity to the case. Next, two 8 mm robotic ports were placed along the right upper abdomen. The camera 8-mm port was maintained along the epigastrium. Another 8 mm port was placed along the left upper abdominal wall after exchanging the 5 mm port. Please note that the ports were placed at least 10 to 15 cm away from the target anatomy of the gallbladder. The robot was docked along the left lateral abdomen. The patient was repositioned in reverse Trendelenburg position. Using a grasper for arm 3, a grasper for arm 4, including hook cautery for arm 1, the robotic system was docked and primed as described. Instruments were interchanged by the surgical services assistant including hook cautery, Bovie cautery and clip appliers. I had sat at the console. The gallbladder fundus was retracted over the dome of the liver. Initial attention was brought to the infundibulum which was gently retracted in the inferior lateral approach. Using a grasper, the cystic duct including the cystic artery was carefully skeletonized. FIREFLY was used to identify the cystic artery and cystic structures. An unusual anomaly of the cystic duct traveling in a spiral fashion to the posterior aspect of the gallbladder was identified per illumination. A critical view of safety was obtained. Large PLASTIC clips were used throughout the entire case. Using a clip big data solutions architect 2 clips were placed proximally, and 1 clip was placed between the infundibulum and cystic duct and divided using cautery. Next, the cystic artery was similarly clipped and cauterized. Separately, attention was brought to the left upper quadrant where omental adhesion was found and taken down using Bovie cautery. Separate adhesion along the mesh was also identified in taken down using hook cautery for lysis of adhe sions. Electro-Bovie cautery was used to remove the gallbladder from the hepatic fossa. Hemostasis was checked and found to be adequate. The robot was undocked. I re-scrubbed into the case. Using a 10 mm Endo Catch bag via the left upper quadrant incision, the specimen was removed from the abdominal cavity. All pneumoperitoneum instruments were evacuated from the abdominal cavity. The incisions were reapproximated using 4-0 Monocryl in an interrupted subcuticular fashion. Fascial defects were less than 8 mm in size. Please note along the trocar sites, local anesthetic was placed as a field block prior to insertion of all instruments. Liquid glue was applied to the skin. At the end of the procedure needle, sponge, and instrument count had been verified correct by the neurosurgical physician assistant. The patient was transferred to postanesthesia care unit in stable condition. Intraoperative films were shared with the patient's family who were very pleased with the level of care. Plan - Discharge Summary Discharge Rx Participant: No New Discharge Prescriptions: New Ibuprofen [Motrin] 600 mg PO Q8HR PRN #30 tab PRN Reason: Pain Acetaminophen Tab [Tylenol Tab] 500 mg PO Q6H PRN #30 tablet PRN Reason: Pain Continue Atorvastatin [Lipitor] 80 mg PO DAILY metFORMIN HCL 1,000 mg PO BID ALPRAZolam [Xanax] 0.5 mg PO HS Losartan Potassium [Cozaar] 100 mg PO DAILY Insulin Glargine,Hum.rec.anlog [Lantus Solostar] 10 units PO HS Ondansetron Odt [Zofran ODT] 4 mg PO Q12HR PRN 5 Days #10 tab PRN Reason: Nausea buPROPion HCL [Wellbutrin XL] 300 mg PO DAILY Discharge Medication List Atorvastatin [Lipitor] 80 mg PO DAILY 08/16/17 [History] ALPRAZolam [Xanax] 0.5 mg PO HS 08/20/17 [History] metFORMIN HCL 1,000 mg PO BID 08/20/17 [History] Insulin Glargine,Hum.rec.anlog [Lantus Solostar] 10 units PO HS 01/08/19 [History] Losartan Potassium [Cozaar] 100 mg PO DAILY 01/08/19 [History] Ondansetron Odt [Zofran ODT] 4 mg PO Q12HR PRN 5 Days #10 tab 01/08/19 [Rx] buPROPion HCL [Wellbutrin XL] 300 mg PO DAILY 01/13/19 [History] Acetaminophen Tab [Tylenol Tab] 500 mg PO Q6H PRN #30 tablet 01/16/19 [Rx] Ibuprofen [Motrin] 600 mg PO Q8HR PRN #30 tab 01/16/19 [Rx] Follow up Appointment(s)/Referral(s): Marisa Roberts MD [STAFF PHYSICIAN] - 01/20/19 Patient Instructions/Handouts: Low Fat Diet (DC), Laparoscopic Cholecystectomy (GEN) Activity/Diet/Wound Care/Special Instructions: May shower. No bathtub soaks. Light diet today. Apply ice and all incisions for pain. No lifting over 10 pounds for 10 days until 01/26/2019. No bathtub s oaks until 01/26/2019. Discharge Disposition: HOME SELF-CARE
[2019-01-16] MEDS ORDERED: ONDANSETRON 4 MG/2 ML VIAL IVP ONE (12:00)
[2019-01-16] MEDS ORDERED: diphenhydrAMINE 50 MG/ML 1 ML VIAL IVP ONE ×2 (12:17→12:30)
[2019-01-16 12:35] LABS: Glucose,Whole Blood 182 mg/dL (75-99)
[2019-01-16 12:47] VITALS: RESP 18
[2019-01-16 12:59] VITALS: BP 115/69; PULSE 80
== END 2019-01-16 13:13 | disposition home or self-care (01) ==
LOC: OR 07:43
PROVIDERS: ATTEND Surgery Plastic and Reconstructive Surgery
DX: K81.1 Chronic cholecystitis (principal); E11.9 Type 2 diabetes mellitus without complications; E66.01 Morbid (severe) obesity due to excess calories; F32.9 Major depressive disorder, single episode, unspecified; F41.1 Generalized anxiety disorder; I11.9 Hypertensive heart disease without heart failure; K76.0 Fatty (change of) liver, not elsewhere classified; Z68.35 Body mass index [BMI] 35.0-35.9, adult; Z79.4 Long term (current) use of insulin; Z90.49 Acquired absence of other specified parts of digestive tract; Z87.891 Personal history of nicotine dependence; K21.9 Gastro-esophageal reflux disease without esophagitis; Z79.899 Other long term (current) drug therapy; Z88.8 Allergy status to other drugs, medicaments and biological substances; Z91.030 Bee allergy status; E78.5 Hyperlipidemia, unspecified; G47.33 Obstructive sleep apnea (adult) (pediatric)
CPT/HCPCS: 88304; 47562; J2250; J1200; J1100; J2710; J0690; J2405; J2001; J3010; J1885; J1170 ×2; J0330; J2704

== ENCOUNTER 2019-01-30 12:55 | Day surgery (SDC) | payer BC ==
[2019-01-28 12:20] VITALS: BMI 33.6
--- NOTE | 2019-01-30 09:11 | P.GSHP ---
History of Present Illness H&P Date: 01/30/19 CHIEF COMPLAINT: GERD and GI bleed. HISTORY OF PRESENT ILLNESS: The patient is a 48-year-old male who presents with gastroesophageal reflux disease and blood in stools. Upper and lower endoscopy were offered for further evaluation and management. PAST MEDICAL HISTORY: Please see list. PAST SURGICAL HISTORY: Please see list. MEDICATIONS: Please see list. ALLERGIES: Please see list. SOCIAL HISTORY: Please see list. FAMILY HISTORY: Please see list. REVIEW OF ORGAN SYSTEMS: CONSTITUTIONAL: No reports of fevers or chills. PHYSICAL EXAM: VITAL SIGNS: Stable GENERAL: Well-developed pleasant in no acute distress. HEENT: No scleral icterus. Extraocular movements grossly intact. Moist buccal mucosa. NECK: Supple without lymphadenopathy. CHEST: Unlabored respirations. Equal bilateral excursions. CARDIOVASCULAR: Regular rate and rhythm. Distal 2+ pulses. ABDOMEN: Soft, nondistended. MUSCULOSKELETAL: No clubbing, cyanosis, or edema. ASSESSMENT: 1. Gastroesophageal reflux disease 2. GI bleed PLAN: 1. Recommend proceeding with an upper and lower endoscopy Past Medical History Past Medical History: Diabetes Mellitus, GERD/Reflux, Hyperlipidemia, Hypertension, Prostate Disorder, Sleep Apnea/CPAP/BIPAP Additional Past Medical History / Comment(s): hiatal hernia, tumor on pancreas (to have biopsy), History of Any Multi-Drug Resistant Organisms: None Reported Past Surgical History: Cholecystectomy, Hernia Repair Additional Past Surgical History / Comment(s): umbilical and inguinal hernia repair, surgery to remove glass from left elbow Past Anesthesia/Blood Transfusion Reactions: No Reported Reaction Smoking Status: Former smoker - Past Family History Mother Family Medical History: No Reported History Medications and Allergies Home Medications Medication Instructions Recorded Confirmed Type Atorvastatin [Lipitor] 80 mg PO DAILY 08/16/17 01/28/19 History ALPRAZolam [Xanax] 0.5 mg PO HS 08/20/17 01/28/19 History metFORMIN HCL 1,000 mg PO BID 08/20/17 01/28/19 History Losartan Potassium [Cozaar] 100 mg PO DAILY 01/08/19 01/28/19 History buPROPion HCL [Wellbutrin XL] 300 mg PO DAILY 01/13/19 01/28/19 History Allergies Allergy/AdvReac Type Severity Reaction Status Date / Time bee venom protein (honey bee) Allergy Swelling Verified 01/28/19 12:13 tramadol [From Ultram] Allergy NIGHT Verified 01/28/19 12:13 DRAGAN
[~2019-01-30 12:55] MED LIST changes: -ACETAMINOPHEN TAB 500 MG TAB PO STA; -HEPARIN SODIUM,PORCINE 5,000 UNIT/ML 1 ML VIAL SQ ONE; -HYDROmorphone 0.5 MG/0.5 ML SYRINGE IVP PRN; -INDOCYANINE GREEN 25 MG VIAL IV ONE; +LIDOCAINE 1% 20 ML VIAL (10MG/ML) FOR IV START INTRADERMA PRN; -MIDAZOLAM 2 MG/2 ML VIAL IV PRN
[2019-01-30 13:20] VITALS: RESP 16; TEMP 97.1
[2019-01-30 13:28] LABS: Glucose,Whole Blood 139 mg/dL (75-99)
[2019-01-30] MEDS ORDERED: PROPOFOL 10 MG/ML 20 ML VIAL IV ONE (14:46)
[2019-01-30] MEDS ORDERED: LIDOCAINE 1% INJ 10MG/ML (20 ML MDV) ONE (14:46)
--- NOTE | 2019-01-30 15:01 | P.PCN ---
Date of Procedure: 01/30/19 Description of Procedure: PREOPERATIVE DIAGNOSIS: History of gastrointestinal bleed Gastroesophageal reflux disease. POSTOPERATIVE DIAGNOSIS: History of gastrointestinal bleed Gastroesophageal reflux disease. Diaphragmatic hiatal hernia OPERATION: Esophagogastroduodenoscopy with biopsies along antrum. SURGEON: Marisa Roberts MD ANESTHESIA: MAC. INDICATIONS: The patient is a 48-year-old male who presents with a history of reflux disease and gastrointestinal bleed. Benefits and risks of the procedure were described. Informed consent was obtained. DESCRIPTION: The patient was brought into the endoscopy suite and laid in the left lateral decubitus position. An Olympus gastroscope was passed along the posterior oropharynx down to the distal esophagus where the squamocolumnar junction was encountered at 38 cm from the incisors. The stomach was entered and no bile reflux was found. Additional findings are listed below. Biopsies with cold forceps were obtained of the antrum. The first through third portion of the duodenum was examined and unremarkable. Retroflexion of the scope confirmed Hill grade 2 lower esophageal valve. The squamocolumnar junction demonstrated LA grade A erosive esophagitis. The stomach was desufflated. The patient tolerated the procedure well. FINDINGS: Squamocolumnar junction 38 cm from the incisors. Diaphragmatic hiatus at 40 cm. Hiatal hernia, 2 cm Hill grade 4 lower esophageal valve. LA grade A erosive esophagitis. No active duodenitis. Chronic gastritis without bleeding RECOMMENDATIONS: Upper endoscopy as needed.
--- NOTE | 2019-01-30 15:16 | P.PCN ---
Date of Procedure: 01/30/19 Description of Procedure: PREOPERATIVE DIAGNOSIS: Gastrointestinal bleeding Chronic diarrhea POSTOPERATIVE DIAGNOSIS: Ulcerative colitis, active External hemorrhoids, grade 2 Internal hemorrhoids, grade 2 OPERATION: Colonoscopy to the ileocecal valve and appendiceal orifice. Colonoscopy with cold forceps biopsies random SURGEON: Marisa Roberts MD. ANESTHESIA: MAC. SPECIMENS: 1. Random colon biopsies 2. Stool cultures INDICATIONS: The patient is a 48-year-old male who presents with GI bleeding including chronic diarrhea Benefits and risks were described and informed consent was obtained. DESCRIPTION OF PROCEDURE: The patient had undergone Gatorade, MiraLAX and Dulcolax prep. He had been brought into the operating room and laid in the left lateral decubitus position. After adequate intravenous sedation, the rectum was examined with 2% lidocaine jelly. External hemorrhoids were encountered. The rectal tone was within normal limits. No lesions were palpated in the rectal vault. An Olympus colonoscope was advanced until the ileocecal valve and appendiceal orifice were clearly viewed. The prep was fair. Moderate erythema including pustules along the ascending colon and sigmoid colon was identified with cold forcep biopsies obtained for colitis. No colonic polyps were found. Retroflexion of the scope demonstrated grade 1 internal hemorrhoids without active bleeding or inflammation. The colon was desufflated. Stool cultures were also obtained. The patient had tolerated the procedure well. Withdrawal time was over 6 minutes. FINDINGS: Aronchick preparation quality scale 3 (1-5) Internal hemorrhoids, grade 2 External prolapsed hemorrhoids, grade 2 No arteriovenous malformations. No adenomatous polyps. Severe ulcerative type colitis ascending colon including sigmoid colon with cold forceps biopsies obtained. Stool cultures obtained. RECOMMENDATIONS: We'll need repeat colonoscopy Plan - Discharge Summary Discharge Rx Participant: No New Discharge Prescriptions: New metroNIDAZOLE [Flagyl] 500 mg PO TID #30 tab No Action Atorvastatin [Lipitor] 80 mg PO DAILY metFORMIN HCL 1,000 mg PO BID ALPRAZolam [Xanax] 0.5 mg PO HS Losartan Potassium [Cozaar] 100 mg PO DAILY buPROPion HCL [Wellbutrin XL] 300 mg PO DAILY Discharge Medication List Atorvastatin [Lipitor] 80 mg PO DAILY 08/16/17 [History] ALPRAZolam [Xanax] 0.5 mg PO HS 08/20/17 [History] metFORMIN HCL 1,000 mg PO BID 08/20/17 [History] Losartan Potassium [Cozaar] 100 mg PO DAILY 01/08/19 [History] buPROPion HCL [Wellbutrin XL] 300 mg PO DAILY 01/13/19 [History] metroNIDAZOLE [Flagyl] 500 mg PO TID #30 tab 01/30/19 [Rx] Follow up Appointment(s)/Referral(s): Marisa Roberts MD [STAFF PHYSICIAN] - 02/17/19 Patient Instructions/Handouts: Ulcerative Colitis (DC) Activity/Diet/Wound Care/Special Instructions: Repeat colonoscopy age 52 Discharge Disposition: HOME SELF-CARE
[2019-01-30 15:31] VITALS: BP 121/79; PULSE 66
[2019-01-30 15:31] LABS: Glucose,Whole Blood 114 mg/dL (75-99)
== END 2019-01-30 15:58 | disposition home or self-care (01) ==
LOC: ORWHC2ENDO 12:55
PROVIDERS: ATTEND Surgery Plastic and Reconstructive Surgery
DX: K21.0 Gastro-esophageal reflux disease with esophagitis (principal); K29.50 Unspecified chronic gastritis without bleeding; K44.9 Diaphragmatic hernia without obstruction or gangrene; K51.90 Ulcerative colitis, unspecified, without complications; K64.4 Residual hemorrhoidal skin tags; K64.8 Other hemorrhoids; E11.9 Type 2 diabetes mellitus without complications; E78.5 Hyperlipidemia, unspecified; I10 Essential (primary) hypertension; Z99.89 Dependence on other enabling machines and devices; Z90.49 Acquired absence of other specified parts of digestive tract; Z87.891 Personal history of nicotine dependence; Z79.899 Other long term (current) drug therapy; Z88.8 Allergy status to other drugs, medicaments and biological substances; Z91.030 Bee allergy status; G47.33 Obstructive sleep apnea (adult) (pediatric); Z79.84 Long term (current) use of oral hypoglycemic drugs
CPT/HCPCS: 88305; 87324; 87045; 87046; 45380; 43239; J2001; J2704

== ENCOUNTER → 2019-03-18 | Outpatient (CLI) | payer BC ==
[2019-03-18 11:14] LABS: Basophils # (A) 0.1 k/uL (0-0.2); Basophils % (A) 1 %; Eosinophils # (A) 0.3 k/uL (0-0.7); Eosinophils % (A) 3 %; HCT 50.4 % (39.0-53.0); HGB 16.9 gm/dL (13.0-17.5); Lymphocytes # (A) 2.6 k/uL (1.0-4.8); Lymphocytes % (A) 30 %; MCH 29.4 pg (25.0-35.0); MCHC 33.5 g/dL (31.0-37.0); MCV 87.8 fL (80.0-100.0); Monocytes # (A) 0.5 k/uL (0-1.0); Monocytes % (A) 5 %; Neutrophils % (A) 57 %; Platelet Count 320 k/uL (150-450); RBC 5.73 m/uL (4.30-5.90); RDW 13.3 % (11.5-15.5); WBC 8.7 k/uL (3.8-10.6)
[2019-03-18 13:19] LABS: Erythrocyte Sedimentation Rate 8 mm/hr (0-15)
[2019-03-18 18:12] LABS: ALT 89 U/L (10-49); AST 36 U/L (14-35); African American GFR (CKD) 124.2 (60.0-200.0); Albumin/Globulin Ratio 2.55 (1.60-3.17); Alkaline Phosphatase 139 U/L (41-126); C Reactive Protein <0.4 mg/dL (0.0-0.8); Calcium 10.2 mg/dL (8.7-10.3); Carbon Dioxide 27.9 mmol/L (21.6-31.8); Chloride 103 mmol/L (96-109); Glucose 130 mg/dL (70-110); Non-African American GFR(CKD) 107.1 (60.0-200.0); Potassium 4.6 mmol/L (3.5-5.5); Sodium 139 mmol/L (135-145); Total Bilirubin 0.6 mg/dL (0.3-1.2); Total Protein 7.1 g/dL (6.2-8.2)
== END | disposition home or self-care (01) ==
LOC: LABWHC1 09:32
PROVIDERS: ATTEND Nurse Practitioner
DX: K51.90 Ulcerative colitis, unspecified, without complications (principal)
CPT/HCPCS: 36415; 80053; 85025; 85652; 86140

== ENCOUNTER 2022-03-14 07:33 | Day surgery (SDC) | payer BC ==
[2022-03-14] MEDS ORDERED: LIDOCAINE 1% (10MG/ML) FOR IV START INTRADERMA PRN (07:35)
[2022-03-14] MEDS ORDERED: LACTATED RINGERS 1,000 ML IV SCH (07:35)
--- NOTE | 2022-03-14 07:41 | P.GSHP ---
History of Present Illness H&P Date: 03/14/22 CHIEF COMPLAINT: Colon screen HISTORY OF PRESENT ILLNESS: The patient is a 51-year-old male who presents for colon screen. Lower endoscopy was offered for further evaluation and management. PAST MEDICAL HISTORY: Please see list. PAST SURGICAL HISTORY: Please see list. MEDICATIONS: Please see list. ALLERGIES: Please see list. SOCIAL HISTORY: No illicit drug use FAMILY HISTORY: No reports of Crohn disease or ulcerative colitis. REVIEW OF ORGAN SYSTEMS: CONSTITUTIONAL: No reports of fevers or chills. PHYSICAL EXAM: VITAL SIGNS: Stable GENERAL: Well-developed pleasant in no acute distress. HEENT: No scleral icterus. Extraocular movements grossly intact. Moist buccal mucosa. NECK: Supple without lymphadenopathy. CHEST: Unlabored respirations. Equal bilateral excursions. CARDIOVASCULAR: Regular rate and rhythm. Distal 2+ pulses. ABDOMEN: Soft, nontender, nondistended. MUSCULOSKELETAL: No clubbing, cyanosis, or edema. ASSESSMENT: 1. Colon screen. PLAN: 1. Recommend proceeding with a lower endoscopy Past Medical History Past Medical History: Chest Pain / Angina, Diabetes Mellitus, GERD/Reflux, Hyperlipidemia, Hypertension, Prostate Disorder, Sleep Apnea/CPAP/BIPAP Additional Past Medical History / Comment(s): hiatal hernia, uses cpap , enlarged heart and liver. osteocolitis on left side of left and rt side of bowels. History of Any Multi-Drug Resistant Organisms: None Reported Past Surgical History: Cholecystectomy, Hernia Repair Additional Past Surgical History / Comment(s): umbilical and inguinal hernia r epair, surgery to remove glass from left elbow Past Anesthesia/Blood Transfusion Reactions: No Reported Reaction Additional Past Anesthesia/Blood Transfusion Reaction / Comment(s): no blood transfusions Smoking Status: Current every day smoker - Past Family History Mother Family Medical History: No Reported History Father Additional Family Medical History / Comment(s): when pt was 5 yrs Medications and Allergies Home Medications Medication Instructions Recorded Confirmed Type Atorvastatin [Lipitor] 80 mg PO DAILY 08/16/17 03/07/22 History ALPRAZolam [Xanax] 0.5 mg PO BID 08/20/17 03/07/22 History metFORMIN HCL [Glucophage] 1,000 mg PO BID 08/20/17 03/07/22 History Losartan Potassium [Cozaar] 100 mg PO DAILY 01/08/19 03/07/22 History buPROPion HCL [Wellbutrin XL] 300 mg PO DAILY 01/13/19 03/07/22 History DULoxetine HCL 20 mg PO BID 03/07/22 03/07/22 History Sildenafil [Revatio] 20 mg PO DAILY PRN 03/07/22 03/07/22 History Unk Level Vitamin Patch 1 patch TOPICAL DAILY 03/07/22 03/07/22 History Unk Long Acting Insulin 25 units SQ AC-BRKFST 03/07/22 03/07/22 History Allergies Allergy/AdvReac Type Severity Reaction Status Date / Time bee venom protein (honey bee) Allergy Swelling Verified 03/07/22 11:57 tramadol [From Ultram] Allergy NIGHT Verified 03/07/22 11:57 DRAGAN
[2022-03-14 07:58] VITALS: RESP 16; TEMP 97.1
[2022-03-14 08:04] LABS: Glucose,Whole Blood 191 mg/dL (70-110)
[2022-03-14] MEDS ORDERED: LIDOCAINE 2% INJ 20 MG/ML (2 ML VIAL) ONE (08:42)
[2022-03-14] MEDS ORDERED: PROPOFOL 10 MG/ML 20 ML VIAL IV ONE (08:42)
--- NOTE | 2022-03-14 09:15 | P.PCN ---
Date of Procedure: 03/14/22 Description of Procedure: PREOPERATIVE DIAGNOSIS: Colonoscopy screening. History of ulcerative colitis POSTOPERATIVE DIAGNOSIS: Colonoscopy screening. History of ulcerative colitis Sigmoid diverticulosis OPERATION: Colonoscopy to the cecum, ileocecal valve and appendiceal orifice. Colonoscopy with cold forceps biopsies SURGEON: Marisa Roberts MD. ANESTHESIA: MAC. INDICATIONS: The patient is a 51-year-old male who presents for colonoscopy screening. Benefits and risks were described and informed consent was obtained. DESCRIPTION OF PROCEDURE: The patient had undergone Sutab prep. The patient had been brought into the operating room and laid in the left lateral decubitus position. After adequate intravenous sedation, the rectum was examined with 2% lidocaine jelly. No external hemorrhoids were encountered. The rectal tone was within normal limits. No lesions were palpated in the rectal vault. An Olympus colonoscope was advanced until the cecum, ileocecal valve and appendiceal orifice were clearly viewed. The prep was good. Sigmoid diverticulosis was encountered. No colonic polyps were found. Random biopsies were obtained for history of ulcerative colitis. Retroflexion of the scope demonstrated grade 1 internal hemorrhoids without active bleeding or inflammation. The colon was desufflated. The patient had tolerated the procedure well. Withdrawal time was over 6 minutes. FINDINGS: Aronchick preparation quality scale 2(1-5) Internal hemorrhoids, grade 1 No external prolapsed hemorrhoids. No arteriovenous malformations. No adenomatous polyps. Sigmoid diverticulosis Random biopsies obtained for history of ulcerative colitis RECOMMENDATIONS: Lower endoscopy in 3 years, 2024 Plan - Discharge Summary Discharge Rx Participant: No New Discharge Prescriptions: Continue Atorvastatin [Lipitor] 80 mg PO DAILY metFORMIN HCL [Glucophage] 1,000 mg PO BID ALPRAZolam [Xanax] 0.5 mg PO BID Losartan Potassium [Cozaar] 100 mg PO DAILY buPROPion HCL [Wellbutrin XL] 300 mg PO DAILY Unk Long Acting Insulin 25 units SQ AC-BRKFST Unk Level Vitamin Patch 1 patch TOPICAL DAILY DULoxetine HCL 20 mg PO BID Sildenafil [Revatio] 20 mg PO DAILY PRN PRN Reason: Erectile dysfunction Discharge Medication List Atorvastatin [Lipitor] 80 mg PO DAILY 08/16/17 [History] ALPRAZolam [Xanax] 0.5 mg PO BID 08/20/17 [History] metFORMIN HCL [Glucophage] 1,000 mg PO BID 08/20/17 [History] Losartan Potassium [Cozaar] 100 mg PO DAILY 01/08/19 [History] buPROPion HCL [Wellbutrin XL] 300 mg PO DAILY 01/13/19 [History] DULoxetine HCL 20 mg PO BID 03/07/22 [History] Sildenafil [Revatio] 20 mg PO DAILY PRN 03/07/22 [History] Unk Level Vitamin Patch 1 patch TOPICAL DAILY 03/07/22 [History] Unk Long Acting Insulin 25 units SQ AC-BRKFST 03/07/22 [History]
[2022-03-14 09:35] VITALS: BP 125/77; PULSE 63
== END 2022-03-14 10:20 | disposition home or self-care (01) ==
LOC: ORWHC2ENDO 07:33
PROVIDERS: ATTEND Surgery Plastic and Reconstructive Surgery
DX: Z12.11 Encounter for screening for malignant neoplasm of colon (principal); K57.30 Diverticulosis of large intestine without perforation or abscess without bleeding; E11.9 Type 2 diabetes mellitus without complications; K21.9 Gastro-esophageal reflux disease without esophagitis; E78.5 Hyperlipidemia, unspecified; I10 Essential (primary) hypertension; G47.30 Sleep apnea, unspecified; Z79.4 Long term (current) use of insulin; Z79.84 Long term (current) use of oral hypoglycemic drugs; Z87.19 Personal history of other diseases of the digestive system; Z90.49 Acquired absence of other specified parts of digestive tract
CPT/HCPCS: 88305; 45380; J2704; J2001

== ENCOUNTER → 2022-04-09 | Outpatient (CLI) | payer BC | END | disposition home or self-care (01) | LOC: LABWHC1 13:04 | PROVIDERS: ATTEND Surgery Plastic and Reconstructive Surgery | DX: I10 Essential (primary) hypertension (principal) | CPT/HCPCS: 36415; 93005 ==

== ENCOUNTER → 2022-05-09 | Outpatient (CLI) | payer BC ==
[2022-05-09 16:27] VITALS: BP 124/76; PULSE 84; TEMP 98.2; BMI 33.9
--- NOTE | 2022-05-09 17:15 | P.HPBAR ---
Bariatric H&P - History & Physicial H&P Date: 05/09/22 History & Physicial: Visit/CC: new patient Patient initial contact: Initial weight: Initial weight in pounds: Height: 5 ft 9.5 in Initial BMI: Last weight: Current weight: 105.687 kg Current weight in pounds: 233.00 Current BMI: 33.9 Hillman body weight (based on NIH guidelines): 73.936 kg Excess body weight loss: The patient is a 52 year-old M who presents for Bariatric Assessment. Patient has been undergoing medical supervised weight loss was primary care doctor. Was 246 pounds. BMI of 36. Present multiple medical comorbidities including poorly controlled diabetes, hypertensive heart disease, osteoarthritis. Recommend medical supervised weight loss per guidelines. Follow-up at the bariatric center in 1 month, May 23 after her ventral hernia repair surgery. Recommend full bariatric metabolic panel. Recommend upper endoscopy. Maybe lower endoscopy for colonic screening. Past Medical History Past Medical History: Chest Pain / Angina, Diabetes Mellitus, GERD/Reflux, Hyperlipidemia, Hypertension, Prostate Disorder, Sleep Apnea/CPAP/BIPAP Additional Past Medical History / Comment(s): hiatal hernia, uses cpap, enlarged heart and liver. diverticulitis on recent colonoscopy per pt History of Any Multi-Drug Resistant Organisms: None Reported Past Surgical History: Cholecystectomy, Hernia Repair Additional Past Surgical History / Comment(s): umbilical and inguinal hernia repair, surgery to remove glass from left elbow Past Anesthesia/Blood Transfusion Reactions: No Reported Reaction Additional Past Anesthesia/Blood Transfusion Reaction / Comm: no blood transfusions Past Psychological History: Depression Smoking Status: Current every day smoker Past Alcohol Use History: Rare Additional Past Alcohol Use History / Comment(s): quit smoking 07/2016, started smoking age 18, was 1/2 PPD. smoking 2-3 cigars a day Past Drug Use History: None Reported - Past Family History Mother Family Medical History: No Reported History Father Additional Family Medical History / Comment(s): when pt was 5 yrs Surgical - Exam Vital Signs Temp Pulse BP 98.2 F 84 124/76 05/09/22 16:20 05/09/22 16:20 05/09/22 16:20 Bariatric Checklist Checklist: Plan: Checklist: EGD: 1. Hiatal hernia: 2. H. Pylori: HgbA1c: Vitamin D: Smoking: Former smoker Primary care physician referral: Ana Sanford NP Psychiatry clearance: Cardiology clearance: Sleep study: Diet journal: VTE risk score: VTE risk level: Rehab needs at discharge:
== END ==
LOC: BARWHC3 16:19
PROVIDERS: ATTEND Surgery Plastic and Reconstructive Surgery
DX: E66.01 Morbid (severe) obesity due to excess calories (principal); E11.9 Type 2 diabetes mellitus without complications; K21.9 Gastro-esophageal reflux disease without esophagitis; E78.5 Hyperlipidemia, unspecified; I10 Essential (primary) hypertension; F17.200 Nicotine dependence, unspecified, uncomplicated; Z88.5 Allergy status to narcotic agent; Z68.33 Body mass index [BMI] 33.0-33.9, adult
CPT/HCPCS: 99213

== ENCOUNTER → 2023-03-12 | Outpatient (CLI) | payer BC ==
--- NOTE | 2023-03-12 16:21 | P.SLEEP ---
History of Present Illness H&P Date: 03/12/23 52-year-old male patient, coming in to establish care regarding his obstructive sleep apnea at the sleep Center at [facility]. The patient has been diagnosed having obstructive sleep apnea many years back to [facility]. He states that he has been told to have severe SELENE with an AHI of 82. Following that, the patient was given a CPAP unit which is a ResMed 10 APAP and currently the machine is set at a minimum pressure of 11 and a maximum pressure of 20. The patient is also using the air fit N20 medium size nasal mask. The patient states that his machine is malfunctioning. It's motivated exceeded its life expectancy. He is interested in updating his machine. At same time, he is still having some issues with hypersomnia and sleepiness despite the fact that his compliance data on the machine is great. He states that he is diabetic and he is having excessive breathlessness his lower extremities which is disrupting his sleep. He has not been receiving any form of treatment in this regard. No history of any iron deficiency. The patient is on Cymbalta and Xanax for chronic anxiety and depression. He takes Lantus insulin 25 units and metformin for blood sugar control. The patient more recently had a myocardial event where he was hospitalized at [facility] and the patient underwent emergent cardiac catheterization the patient was given stents 2. In regards to his sleep apnea, the patient has been utilizing the machine 100% of the time. The patient's overall compliancy is in order of 100% and based on a 30 day compliancy, the patient utilized the machine every night without any interruption is currently averaging around 9.5 hours of APAP use per night. His P95th percentile pressure is on 12.6 cm of water and the patient has a leak of 60 L/m and AHI is down to 1.1.. Denies having any significant weight gain or weight loss since he was given the original machine. He is going to bed around 7 PM and waking up at 4 AM in the morning. On weekends, he sleeps is seen 8 PM and he wakes up noontime next day. Denies falling asleep while driving. No angina. No palpitations. No chest pain at this point in time. Review of Systems Constitutional: Reports fatigue Eyes: denies as per HPI, denies blurred vision, denies bulging eye, denies decreased vision, denies diplopia, denies discharge, denies dry eye, denies irritation, denies itching, denies pain, denies photophobia, denies loss of peripheral vision, denies loss of vision, denies tunnel vision/blind spots Ears: deny: decreased hearing, ear discharge, earache, tinnitus Ears, nose, mouth and throat: Reports as per HPI Breasts: absent: as per HPI, gynecomastia Cardiovascular: Reports as per HPI Respiratory: Reports sleep apnea Gastrointestinal: Reports as per HPI Genitourinary: Reports as per HPI Musculoskeletal: Reports as per HPI Musculoskeletal: absent: ankle pain, ankle stiffness, ankle swelling Integumentary: Reports as per HPI Neurological: Reports as per HPI Psychiatric: Reports as per HPI Endocrine: Reports as per HPI, Reports fatigue Hematologic/Lymphatic: Reports as per HPI Allergic/Immunologic: Reports as per HPI Past Medical History Past Medical History: Coronary Artery Disease (CAD), Diabetes Mellitus, GERD/Reflux, Hyperlipidemia, Hypertension, Myocardial Infarction (ND), Musculoskeletal Disorder (Osteoarthritis), Prostate Disorder, Sleep Apnea/CPAP/BIPAP Additional Past Medical History / Comment(s): Diverticulosis, hiatal hernia, osteoarthritis, abdominal wall hernia, history of epigastric incisional hernia History of Any Multi-Drug Resistant Organisms: None Reported Past Surgical History: Cholecystectomy, Heart Catheterization With Stent, Hernia Repair Additional Past Surgical History / Comment(s): umbilical and inguinal hernia repair, surgery to remove glass from left elbow Past Anesthesia/Blood Transfusion Reactions: No Reported Reaction Additional Past Anesthesia/Blood Transfusion Reaction / Comment(s): no blood transfusions Past Psychological History: Depression Smoking Status: Current every day smoker Past Alcohol Use History: Rare Additional Past Alcohol Use History / Comment(s): quit smoking 07/2016, started smoking age 18, was 1/2 PPD. smoking 2-3 cigars a day Past Drug Use History: None Reported - Past Family History Mother Family Medical History: No Reported History Father Additional Family Medical History / Comment(s): when pt was 5 yrs Medications and Allergies Home Medications Medication Instructions Recorded Confirmed Type Atorvastatin [Lipitor] 80 mg PO DAILY 08/16/17 05/15/22 History ALPRAZolam [Xanax] 0.5 mg PO BID 08/20/17 05/15/22 History DULoxetine HCL 20 mg PO BID 03/07/22 05/15/22 History Sildenafil [Revatio] 20 mg PO DAILY PRN 03/07/22 05/15/22 History Unk Level Vitamin Patch 1 patch TOPICAL DAILY 03/07/22 05/15/22 History Aspirin EC [Ecotrin Low Dose] 81 mg PO DAILY 05/15/22 05/15/22 History Cyclobenzaprine [Flexeril] 10 mg PO HS 05/15/22 05/15/22 History Insulin Glargine,Hum.rec.anlog 25 units SQ DAILY 05/15/22 05/15/22 History [Insulin Glargine] lisinopriL [Zestril] 10 mg PO DAILY 05/15/22 05/15/22 History Acetaminophen Tab [Tylenol Tab] 1,000 mg PO Q6HR PRN #30 tablet 05/18/22 Rx Ibuprofen [Motrin] 600 mg PO Q8HR PRN #30 tab 05/18/22 Rx Simethicone [Gas-X] 125 mg PO AC-TID PRN #20 capsule 05/18/22 Rx Allergies Allergy/AdvReac Type Severity Reaction Status Date / Time bee venom protein (honey bee) Allergy Swelling Verified 05/18/22 06:19 tramadol [From Ultram] Allergy NIGHT Verified 05/18/22 06:19 TERRORS Physical Exam BP is 143/90, pulse is 73, respirations 12, temperature 98.6, weight is 229, height is 5 feet and 10 inches, BMI 32.3, Costa score is at 18, weight is 229 and the pulse ox is 98% on room air oxygen. Respiratory rate is currently at 12. Pulse is 73. The patient appeared well nourished and normally developed. Vital signs as documented. Head exam is unremarkable. No scleral icterus or corneal arcus noted. Neck is without jugular venous distension, thyromegaly, or carotid bruits. Significant crowding of posterior pharynx and Mallampati class IV. Carotid upstrokes are brisk bilaterally. Lungs are clear to auscultation and percussion. Cardiac exam reveals the PMI to be normally sized and situated. Rhythm is regular. First and second heart sounds normal. No murmurs, rubs or gallops. Abdominal exam reveals normal bowel sounds, no masses, no organomegaly and no aortic enlargement. Extremities are nonedematous and both femoral and pedal pulses are normal.Examination of the skin revealed no evidence of significant rashes, suspicious appearing nevi or other concerning lesions.Neurologically, the patient is awake and alert and the patient does not have any focal neurological deficit. Cranial nerves are essentially intact. Assessment and Plan Plan: Obstructive sleep apnea, likely severe maintain on APAP therapy pressures of 11/20 cm of water and the patient has adequate compliancy. Residual hypersomnia despite adequate treated with CPAP therapy. Rule out malfunctioning CPAP unit. Rule out underlying periodic limb movement/restless leg syndrome contributing to his chronic hypersomnia and causing significant sleep fragmentation. The patient is known to have diabetes mellitus and is diabetic peripheral neuropathy. No history of any iron deficiency. His current upper score still elevated at 18. Obesity with ongoing weight loss, current body mass index is 32.3 Coronary artery disease with recent coronary intervention and stenting for an acute myocardial infarction. 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 Chronic generalized anxiety/depression Obstructive uropathy due to prostate disorder Hypertension along with history of hypertensive heart disease Acid reflux Diffuse osteoarthritis of the large joints Plan We will update the patient's CPAP unit I'm going to go ahead and ordered a ResMed 11 series CPAP unit and this will be set at a minimum pressure of 10 and a maximum pressure of 20 and the patient will be given the same mask interface, air fit n20 nasal mask medium size We will proceed with a split night study. This will be good opportunity to restart his diagnosis of sleep apnea and its severity at the same time evaluate efficacy of CPAP therapy while undergoing a titration. At the same time, we will evaluate for any sleep fragmentation resulting from periodic the moment activity/restless leg. Continue diabetic medication and the patient is currently on insulin and metformin Continue aspirin and Brilinta encourage weight loss Optimize sleep hygiene measures We'll continue to follow Sleep Note - Sleep Note Sleep Note: Temperature: Pulse Rate: Respiratory Rate: Blood Pressure: SpO2: Height: Weight: BMI: Neck Circumference:
== END ==
LOC: 3 N SLEEP 15:37
PROVIDERS: ATTEND Internal Medicine Critical Care Medicine
DX: G47.30 Sleep apnea, unspecified (principal); E11.21 Type 2 diabetes mellitus with diabetic nephropathy; I25.10 Atherosclerotic heart disease of native coronary artery without angina pectoris; E11.40 Type 2 diabetes mellitus with diabetic neuropathy, unspecified; K21.9 Gastro-esophageal reflux disease without esophagitis; E78.5 Hyperlipidemia, unspecified; I10 Essential (primary) hypertension; I21.9 Acute myocardial infarction, unspecified; I11.0 Hypertensive heart disease with heart failure; F32.A Depression, unspecified; N40.0 Benign prostatic hyperplasia without lower urinary tract symptoms; F41.9 Anxiety disorder, unspecified; K43.2 Incisional hernia without obstruction or gangrene; M19.90 Unspecified osteoarthritis, unspecified site; K57.92 Diverticulitis of intestine, part unspecified, without perforation or abscess without bleeding; E66.9 Obesity, unspecified; F17.210 Nicotine dependence, cigarettes, uncomplicated; Z99.89 Dependence on other enabling machines and devices; Z91.030 Bee allergy status; Z88.5 Allergy status to narcotic agent; Z79.899 Other long term (current) drug therapy; Z79.4 Long term (current) use of insulin; Z79.82 Long term (current) use of aspirin; Z68.32 Body mass index [BMI] 32.0-32.9, adult; Z90.49 Acquired absence of other specified parts of digestive tract
CPT/HCPCS: 99211

== ENCOUNTER 2023-04-11 19:30 | Outpatient (CLI) | payer BC ==
--- NOTE | 2023-04-17 03:41 | SLS ---
SLEEP STUDY This is a split night study. HISTORY OF PRESENT ILLNESS: This patient is 52 years old with history of obstructive sleep apnea, severe, maintained on APAP at a pressure of 11/20 cm of water. He continues to have residual hypersomnia despite adequately treated with CPAP therapy. Rule out malfunctioning CPAP unit. Rule out underlying periodic limb movements/restless leg contributing to his chronic hypersomnia and has excessive sleep fragmentation. His current [place] score is at 18. He is obese and is known to have CAD, diabetes, hyperlipidemia, and diabetic nephropathy along with chronic anxiety and depression. A split night study was ordered to re-evaluate this patient's sleep apnea situation and treatment success. PERTINENT PHYSICAL FINDINGS: Height is 5 feet 10 inches, weight is 225 pounds, and BMI 32.6. TECHNICAL DESCRIPTION: The sleep evaluation of the patient consisted of clinical polysomnography, nocturnal respiratory battery, left and right anterior tibialis surface electromyography. The standard montage for the clinical polysomnography included the EEG, EOG, EMG, and EKG. Respiratory battery included measurements of nasal/buccal airflow, thoracic, and/or abdominal effort and intercostal surface EMG. Nocturnal oxyhemoglobin saturations were obtained by finger oximetry. Digital video and audio monitoring were done throughout the entire night to check or parasomnias. Step-ferreira titration with positive airway pressure was utilized during the study to control the respiratory events. SLEEP ARCHITECTURE: During the diagnostic portion of the sleep study, the patient had a total recording time of 188 minutes. The total sleep time was 131 minutes with 25 minutes of wake after sleep onset and sleep efficiency of 69.9%. The latency to sleep onset was 31.5 minutes. The sleep architecture was characterized by 2.3% REM with a REM sleep latency of 90 minutes. 24.1% stage I sleep, 73.8% stage II sleep, 0% stage III. His total arousal index was 58.9. During the diagnostic part of the sleep study, the patient had a total of 132 obstructive events, of which 72 were obstructive apneas, 2 were mixed apneas, and 58 were obstructive hypopneas and the patient had an AHI of 62.5. Based on that, the patient was started on CPAP therapy. During the treatment portion of the sleep study, the sleep architecture was characterized by a total sleep time of 270 minutes with a sleep efficiency of 93.3%. Latency to sleep onset was 15.5 minutes and the sleep architecture was characterized by 9.8% stage I, 77.8% stage II, 4.1% stage III, and 8.3% REM sleep. Total arousal index dropped down to 20.7. CPAP TITRATION STUDY: The CPAP titration was started initially at a pressure of 9 cm of water and pressure was gradually increased up to a pressure of 14 cm of water. At that time, the patient was still having obstructive hypopneas. Subsequently, the patient was switched to a BiPAP and utilized pressures were 16/12, 17/13, 18/14, 19/15 and and 20/16 cm of water. Note that the patient continues to have obstructive hypopneas throughout the titration with the exception of the highest pressure achieved, which was 20/16 cm of water. At that level of pressure, the patient's AHI was down to 4 without any significant nocturnal oxygen desaturation. OXYGENATION ANALYSIS: The patient was having nocturnal oxygen desaturations during the diagnostic portion of the sleep study and oxygenation in general improved while being on CPAP and BiPAP. CARDIAC ANALYSIS: Average heart rate entire night was 73, average heart rate was 69, minimum heart rate was 65, and a maximum heart rate was 73. Periodic limb movement activity. For the entire night, the patient had a total of 224 periodic limb movement activity and 7 periodic limb movement activity with arousals with an index of 1.0. ASSESSMENT: 1. Severe symptomatic obstructive sleep apnea with an AHI of 62.5. Treatment was suboptimal with CPAP therapy and the patient did better with BiPAP therapy, especially at the highest BiPAP pressure encounter, which was 20/16 cm of water. In fact, the arousal index improved considerably with improvement in oxygenation while being on BiPAP therapy and improved sleep architecture and maintenance. 2. Chronic hypersomnia despite being on CPAP therapy. Note that the patient was utilizing an APAP unit on an outpatient basis and the patient's [place] score was 14. 3. Coronary artery disease. 4. Obesity with a BMI of 32. 5. Multiple abdominal wall hernias. 6. Hyperlipidemia. 7. Diabetic nephropathy. 8. Generalized anxiety/depression. 9. Obstructive uropathy due to prostate disorder. 10.Hypertension. 11.Acid reflux. 12.Degenerative arthritis of the large joint. I think it is reasonable to offer BiPAP therapy for this patient. For now, he is using a CPAP with limited success. I am wondering if I can replace his current CPAP machine with a BiPAP unit and if possible, I am going to recommend an auto BiPAP and the patient will be set at an EPAP minimum of 12 and a maximum of 20 with a pressure support of 4. The BiPAP treatment was more optimal for this patient. I am hoping to have improvement in his overall respiratory symptoms while being on BiPAP therapy. Encourage weight loss, regulate sleep hygiene measures, and optimize comorbidities and we will continue to follow. LAVINIA / ANDIN: [id number] /
== END 2023-04-12 05:55 | disposition home or self-care (01) ==
LOC: 3 N SLEEP 19:30
PROVIDERS: ATTEND Internal Medicine Critical Care Medicine
DX: G47.33 Obstructive sleep apnea (adult) (pediatric) (principal); G47.10 Hypersomnia, unspecified; I25.10 Atherosclerotic heart disease of native coronary artery without angina pectoris; E66.9 Obesity, unspecified; K46.9 Unspecified abdominal hernia without obstruction or gangrene; E78.5 Hyperlipidemia, unspecified; E11.40 Type 2 diabetes mellitus with diabetic neuropathy, unspecified; F41.1 Generalized anxiety disorder; F32.A Depression, unspecified; N13.9 Obstructive and reflux uropathy, unspecified; N42.9 Disorder of prostate, unspecified; I10 Essential (primary) hypertension; K21.9 Gastro-esophageal reflux disease without esophagitis; M19.90 Unspecified osteoarthritis, unspecified site; Z68.32 Body mass index [BMI] 32.0-32.9, adult; Z99.89 Dependence on other enabling machines and devices; Z91.030 Bee allergy status; Z88.5 Allergy status to narcotic agent; Z79.899 Other long term (current) drug therapy; Z79.4 Long term (current) use of insulin; Z79.82 Long term (current) use of aspirin; Z87.891 Personal history of nicotine dependence
CPT/HCPCS: 95811